=== PATIENT | male | born 1955 | race Caucasian/White ===

== ENCOUNTER 2017-03-28 03:35 | Emergency (ER) | payer OTHER ==
[~2017-03-28] VITALS: Ht 175.3 cm; Wt 79.4 kg
[~2017-03-28 03:35] MED LIST: CEPH-507 PO; HYDR-757 PO; SULF1TAB35 PO
--- NOTE | 2017-03-28 04:47 | ED Integumentary General ---
General Chief Complaint: Skin/Wound Problems Stated Complaint: SKIN ISSUES Nursing Triage Note: pt ambulated to room. pt states he has parasites all over his body. pt states that little worms are living inside him. pt states that he has been living with a woman for 4 months that has the same parasites he has. Source: patient Exam Limitations: no limitations History of Present Illness Time seen by provider: 04:29 Initial Comments Patient presents to ER by private conveyance with a chief complaint of a few weeks now he has felt a sensation of mosquito large a twitching under his skin. He does not believe he has muscular under his skin rather do think she has some microscopic parasite. He says his girlfriend he was living with for several months had been complaining of the same thing with very specific and often delusional complaints and he noted that no one would take her serious but he gave her the benefit of the doubt. He felt that most of her thinking was a little off and she attributed things to her parasites that made no one want to leave her. She had been examined by multiple doctors and dermatologists and was told that the sensations were in her head and secondary to her use of methamphetamines. He said he thought this might be the case as well until a few weeks ago he started feeling them himself. He has no primary doctor and has not had them worked up by anyone. He did see a street pharmacist who had recommended he use calcium hypochlorite and even put them in capsules for him to buy and take. He says initially they were working great and completely relieved his symptoms until tonight the calcium hypochlorite capsules were not helping his symptoms. He has no acid reflux, abdominal pain, nausea vomiting, hemoptysis. He has a few abrasions that are mildly pruritic. He has not seen any parasites or evidence of movement under his scan. He has no travel outside the [facility]. He says activated charcoal soap helps temporarily with the sensation. It is very convinced that he has parasites and that this is not a delusion. He has not seen a clip loading machine feeder, entomologist, psychiatrist about his symptoms. Allergies and Home Medications Allergies Coded Allergies: Penicillins (Verified Allergy, Unknown, 05/31/16) Home Medications Cephalexin 500 Mg Capsule, 500 MG PO TID, #21 Prescribed by: DEVANTE JONES on 05/31/161931 Hydrocodone/Acetaminophen 1 Each Tablet, 1 EACH PO Q4H PRN for PAIN, #14 Prescribed by: DEVANTE JONES on 05/31/161931 Sulfamethoxazole/Trimethoprim 1 Each Tablet, 1 EACH PO BID, #20 Prescribed by: DEVANTE JONES on 05/31/161931 Constitutional: No chills, No diaphoresis, No fever, No malaise Respiratory: No cough, No short of breath Gastrointestinal: No abdominal pain, No constipation, No diarrhea, No nausea, No vomiting Musculoskeletal: No back pain, No gout, No joint pain Skin: see HPI Psychiatric/Neurological: Anxiety, Denies Headache, Denies Numbness Past Elvrbia-Ftxxuc-Vtmoka Hx Patient Social History Alcohol Use: Denies Use Recreational Drug Use: No Smoking Status: Never a Smoker 2nd Hand Smoke Exposure: No Recent Foreign Travel: No Contact w/Someone Who Travel: No Recent Infectious Disease Expo: No Recent Hopitalizations: No Physical Abuse: No Sexual Abuse: No Seasonal Allergies Seasonal Allergies: No Surgeries History of Surgeries: Yes (HERNIA REPAIR) Surgeries: Tonsillectomy Respiratory History of Respiratory Disorde: No Cardiovascular History of Cardiac Disorders: No Neurological History of Neurological Disord: No Reproductive System Hx Reproductive Disorders: No Genitourinary History of Genitourinary Disor: No Gastrointestinal History of Gastrointestinal Di: No Musculoskeletal History of Musculoskeletal Dis: No Endocrine History of Endocrine Disorders: No HEENT History of HEENT Disorders: No Cancer History of Cancer: No Psychosocial History of Psychiatric Problem: No Suicide Risk Score: 0 Integumentary History of Skin or Integumenta: No Blood Transfusions History of Blood Disorders: No Physical Exam Vital Signs Vital Sign - Last 12Hours 03/28/17 03:54 Temp 98.2 Pulse 51 Resp 20 B/P (MAP) 151/95 Pulse Ox 99 O2 Delivery Room Air Capillary Refill : Less Than 3 Seconds General Appearance: WD/WN, no apparent distress HEENT: PERRL/EOMI, pharynx normal Cardiovascular: normal peripheral pulses, regular rate, rhythm Gastrointestinal: non tender, soft Extremities: no pedal edema, normal capillary refill Neurologic/Psychiatric: alert, oriented x 3, other (pressured speech) Skin: normal color, warm/dry, other (use Less than 1 cm long abrasions on either forearm without any erythema, induration, tracks, Chris, purulence, drainage, bleeding.) Progress/Results/Core Measures Results/Orders Lab Results Laboratory Tests Test 03/28/17 04:47 Range/Units White Blood Count 6.5 4.3-11.0 10^3/uL Red Blood Count 5.04 4.35-5.85 10^6/uL Hemoglobin 14.6 13.3-17.7 G/DL Hematocrit 43 40-54 % Mean Corpuscular Volume 85 80-99 FL Mean Corpuscular Hemoglobin 29 25-34 PG Mean Corpuscular Hemoglobin Concent 34 32-36 G/DL Red Cell Distribution Width 12.9 10.0-14.5 % Platelet Count 208 130-400 10^3/uL Mean Platelet Volume 10.5 H 7.4-10.4 FL Neutrophils (%) (Auto) 61 42-75 % Lymphocytes (%) (Auto) 22 12-44 % Monocytes (%) (Auto) 10 0-12 % Eosinophils (%) (Auto) 7 0-10 % Basophils (%) (Auto) 1 0-10 % Neutrophils # (Auto) 4.0 1.8-7.8 X 10^3 Lymphocytes # (Auto) 1.4 1.0-4.0 X 10^3 Monocytes # (Auto) 0.6 0.0-1.0 X 10^3 Eosinophils # (Auto) 0.4 H 0.0-0.3 10^3/uL Basophils # (Auto) 0.0 0.0-0.1 10^3/uL My Orders Orders - RANJANA MCNEILL Cbc With Automated Diff (03/28/17 04:41) Vital Signs/I&O Vital Sign - Last 12Hours 03/28/17 03:54 Temp 98.2 Pulse 51 Resp 20 B/P (MAP) 151/95 Pulse Ox 99 O2 Delivery Room Air Blood Pressure Mean: 113 Progress Note #1: Time: 04:46 Progress Note We'll collect a CBC looking for an elevated eosinophilia. I would then recommend that he go and see dermatology for further classification of his not readily apparent skin disorder. 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 Progress Note #2: Time: 05:07 Progress Note Absolute eosinophil count is 400 cells per microliter which is less than the tip seen with parasitosis of 500 L. We'll encourage him to follow-up with a clip loading machine feeder or primary care physician. Departure Impression Impression: Primary Impression: Skin disorder Disposition: 01 HOME, SELF-CARE Condition: Stable Departure-Patient Inst. Decision time for Depature: 05:08 Referrals: NO,LOCAL PHYSICIAN (PCP/Family) Primary Care Physician Add. Discharge Instructions: Follow-up with a primary care physician or a clip loading machine feeder. Please stop taking calcium hypochlorite as this is bleach and can be caustic and very dangerous to your stomach lining as well as your health. It can even be deadly. Washing your skin with a gentle soap and water daily is probably all you need. There may be further testing to be done such as skin scrapings or referral but these will only be done at primary care setting with outpatient follow-up. All discharge instructions reviewed with patient and/or family. Voiced understanding. RANJANA MCNEILL Mar 28, 2017 04:47
[2017-03-28 04:54] LABS: BASOPHILS % (AUTO) 1 % (0-10); EOSINOPHILS # (AUTO) 0.4 10^3/uL (0.0-0.3); EOSINOPHILS % (AUTO) 7 % (0-10); LYMPHOCYTES # (AUTO) 1.4 X 10^3 (1.0-4.0); LYMPHOCYTES % (AUTO) 22 % (12-44); MEAN CORPUSCULAR HEMOGLOBIN 29 PG (25-34); MEAN CORPUSCULAR HGB CONC 34 G/DL (32-36); MEAN CORPUSCULAR VOLUME 85 FL (80-99); MEAN PLATELET VOLUME 10.5 FL (7.4-10.4); MONOCYTES # (AUTO) 0.6 X 10^3 (0.0-1.0); MONOCYTES % (AUTO) 10 % (0-12); NEUTROPHILS % (AUTO) 61 % (42-75); PLATELET COUNT 208 10^3/uL (130-400); RED BLOOD COUNT 5.04 10^6/uL (4.35-5.85); RED CELL DISTRIBUTION WIDTH 12.9 % (10.0-14.5); WHITE BLOOD COUNT 6.5 10^3/uL (4.3-11.0)
[2017-03-28 05:19] VITALS: BP 151/95
== END 2017-03-28 05:20 | disposition home or self-care (01) ==
LOC: EDUNIT# 03:35 → ER 03:37
DX: L98.9 Disorder of the skin and subcutaneous tissue, unspecified (principal); Z90.89 Acquired absence of other organs
CPT/HCPCS: 36415; 85025; 99283

== ENCOUNTER 2018-01-26 10:21 | Inpatient (IN) | payer OTHER ==
[~2018-01-26] VITALS: Ht 175.3 cm; Wt 68.0 kg
[2018-01-26] MEDS ORDERED: ACETAMINOPHEN 500 MG TAB (TYLENOL) PO PRN (10:30)
--- NOTE | 2018-01-26 10:37 | ED GI ---
General Chief Complaint: Abdominal/GI Problems Stated Complaint: D/WEAKNESS Source of Information: Patient, EMS Exam Limitations: No Limitations (ALAN MARTIN STUDENT) History of Present Illness Date Seen by Provider: Jan 26, 2018 Time Seen by Provider: 10:32 Initial Comments Patient is a 62-year-old male who was brought to the emergency room by [facility] from [facility] with reports of fever, diarrhea, weakness, positive orthostats, and dehydration. [facility] reports that this was his first visit with them and on arrival he was extremely weak and thhe started an IV gave him 1 L of normal saline. EMS reports giving him a second liter of normal saline that was infusing on arrival to ED. The patient reports that he has had diarrhea for one month after eating a raw egg. He reports eating raw eggs often but states that the diarrhea started immediately after eating on this particular occasion. He reports over the past month he has had minimal appetite and when he does eat he has diarrhea shortly after. For the past 2 weeks he became extremely weak and has been running a fever. Timing/Duration: Changing Over Time, Other (1 month) Severity/Quality: Moderate Associated Symptoms: Fatigue, Headache, Weakness, Other (diarrhea) (ALAN MARTIN STUDENT) Allergies and Home Medications Allergies Coded Allergies: Penicillins (Verified Allergy, Unknown, 05/31/16) Patient Home Medication List Home Medication List Reviewed: Yes (ALAN MARTIN STUDENT) Review of Systems Constitutional: see HPI, fever, weakness EENTM: No Symptoms Reported Respiratory: See HPI; Denies Cough, Denies Shortness of Air, Denies Wheezing Cardiovascular: See HPI; Denies Chest Pain, Denies Edema, Denies Lightheadedness Gastrointestinal: See HPI; Denies Abdominal Pain; Diarrhea; Denies Nausea, Denies Vomiting Genitourinary: See HPI; Denies Drainage, Denies Frequency, Denies Flank Pain Musculoskeletal: see HPI; No back pain; muscle weakness Skin: see HPI; No change in color, No change in hair/nails Psychiatric/Neurological: See HPI; Denies Anxiety, Denies Depressed Endocrine: See HPI; Denies Excessive Sweating, Denies Flushing Hematologic/Lymphatic: See HPI; Denies Anemia (ALAN MARTIN STUDENT) All Other Systems Reviewed Negative Unless Noted: Yes (ALAN MARTIN) Past Orsvtmn-Kibswp-Csjmmg Hx Past Med/Social Hx: Reviewed Nursing Past Med/Soc Hx (ALAN MARTIN STUDENT) Patient Social History 2nd Hand Smoke Exposure: No Recent Hopitalizations: No (ALAN MARTIN) Seasonal Allergies Seasonal Allergies: No (ALAN MARTIN) Past Medical History Surgeries: Yes (HERNIA REPAIR) Tonsillectomy Respiratory: No Cardiac: No Neurological: No Reproductive Disorders: No Genitourinary: No Gastrointestinal: No Musculoskeletal: No Endocrine: No HEENT: No Cancer: No Psychosocial: No Integumentary: No Blood Disorders: No (ALAN MARTIN STUDENT) Family Medical History Reviewed Nursing Family Hx (ALAN MARTIN STUDENT) Physical Exam Vital Signs Vital Signs - First Documented 01/26/18 10:23 Temp 103.1 Pulse 82 Resp 16 B/P (MAP) 102/66 (78) Pulse Ox 99 O2 Delivery Nasal Cannula O2 Flow Rate 2.00 (CROW BURDEN MD) Vital Signs Capillary Refill : (ALAN MARTIN STUDENT) General Appearance: WD/WN, no apparent distress HEENT: normal ENT inspection, TMs normal, pharynx normal Neck: full range of motion, supple, normal inspection Respiratory: lungs clear, normal breath sounds, no respiratory distress, no accessory muscle use Cardiovascular: normal peripheral pulses, regular rate, rhythm, no edema Gastrointestinal: normal bowel sounds, non tender, soft Extremities: normal range of motion, non-tender, normal inspection, no pedal edema Back: normal inspection, no CVA tenderness, no vertebral tenderness Neurologic/Psychiatric: alert, normal mood/affect, oriented x 3 Skin: normal color, warm/dry Lymphatic: no adenopathy (ALAN MARTIN STUDENT) Focused Exam Lactate Level 01/26/18 10:25: Lactic Acid Level 0.89 (CROW BURDEN MD) Lactic Acid Level Laboratory Tests Test 01/26/18 10:25 Lactic Acid Level 0.89 MMOL/L (0.50-2.00) (CROW BURDEN MD) Progress/Results/Core Measures Results/Orders Lab Results Laboratory Tests Test 01/26/18 10:25 01/26/18 12:42 Range/Units White Blood Count 9.3 4.3-11.0 10^3/uL Red Blood Count 4.32 L 4.35-5.85 10^6/uL Hemoglobin 12.5 L 13.3-17.7 G/DL Hematocrit 36 L 40-54 % Mean Corpuscular Volume 82 80-99 FL Mean Corpuscular Hemoglobin 29 25-34 PG Mean Corpuscular Hemoglobin Concent 35 32-36 G/DL Red Cell Distribution Width 13.2 10.0-14.5 % Platelet Count 270 130-400 10^3/uL Mean Platelet Volume 10.4 7.4-10.4 FL Neutrophils (%) (Auto) 85 H 42-75 % Lymphocytes (%) (Auto) 8 L 12-44 % Monocytes (%) (Auto) 7 0-12 % Eosinophils (%) (Auto) 0 0-10 % Basophils (%) (Auto) 0 0-10 % Neutrophils # (Auto) 7.9 H 1.8-7.8 X 10^3 Lymphocytes # (Auto) 0.7 L 1.0-4.0 X 10^3 Monocytes # (Auto) 0.7 0.0-1.0 X 10^3 Eosinophils # (Auto) 0.0 0.0-0.3 10^3/uL Basophils # (Auto) 0.0 0.0-0.1 10^3/uL Prothrombin Time 18.2 H 12.2-14.7 SEC INR Comment 1.5 H 0.8-1.4 Activated Partial Thromboplast Time 38 H 24-35 SEC Sodium Level 131 L 135-145 MMOL/L Potassium Level 3.4 L 3.6-5.0 MMOL/L Chloride Level 100 98-107 MMOL/L Carbon Dioxide Level 21 21-32 MMOL/L Anion Gap 10 5-14 MMOL/L Blood Urea Nitrogen 14 7-18 MG/DL Creatinine 0.76 0.60-1.30 MG/DL Estimat Glomerular Filtration Rate > 60 BUN/Creatinine Ratio 18 Glucose Level 109 H 70-105 MG/DL Lactic Acid Level 0.89 0.50-2.00 MMOL/L Calcium Level 7.8 L 8.5-10.1 MG/DL Total Bilirubin 1.3 H 0.1-1.0 MG/DL Aspartate Amino Transf (AST/SGOT) 55 H 5-34 U/L Alanine Aminotransferase (ALT/SGPT) 96 H 0-55 U/L Alkaline Phosphatase 49 40-136 U/L Total Protein 6.0 L 6.4-8.2 GM/DL Albumin 3.1 L 3.2-4.5 GM/DL (CROW BURDEN MD) My Orders Orders - CROW BURDEN MD Cbc With Automated Diff (01/26/18 10:30) Comprehensive Metabolic Panel (01/26/18 10:30) Lactic Acid Analyzer (01/26/18 10:30) Blood Culture (01/26/18 10:30) Sputum Culture (01/26/18 10:30) Ua Culture If Indicated (01/26/18 10:30) Protime With Inr (01/26/18 10:30) Partial Thromboplastin Time (01/26/18 10:30) Chest 1 View, Ap/Pa Only (01/26/18 10:30) O2 (01/26/18 10:30) Acetaminophen Tablet (Tylenol Tablet) (01/26/18 10:30) Saline Lock/Iv-Start (01/26/18 10:30) Vital Signs Adult Sepsis Patie Q15M (01/26/18 10:30) Remove Rings In Anticipation O (01/26/18 10:30) Saline Lock/Iv-Start (01/26/18 11:25) Ns Iv 1000 Ml (Sodium Chloride 0.9%) (01/26/18 11:25) Ceftriaxone Injection (Rocephin Injectio (01/26/18 12:15) Tick Panel With Lyme Eia (01/26/18 12:44) (CROW BURDEN MD) Medications Given in ED Current Medications Medications Dose Ordered Sig/Sneha Route Start Time Stop Time Status Last Admin Dose Admin Acetaminophen 1,000 mg ONCE PRN PO 01/26/18 10:30 01/26/18 10:43 DC 01/26/18 10:43 1,000 MG Ceftriaxone Sodium 1000 mg/ Sodium Chloride 50 ml @ 100 mls/hr ONCE ONCE IV 01/26/18 12:15 01/26/18 12:44 DC 01/26/18 12:36 100 MLS/HR Sodium Chloride 1,000 ml @ 0 mls/hr Q0M ONCE IV 01/26/18 11:25 01/26/18 11:26 DC 01/26/18 11:33 1,000 MLS/HR (CROW BURDEN MD) Vital Signs/I&O 01/26/18 01/26/18 01/26/18 01/26/18 10:23 10:46 11:15 11:38 Temp 103.1 100.0 Pulse 82 64 73 92 Resp 16 B/P (MAP) 102/66 (78) 105/62 (76) 105/64 (78) 88/61 (70) Pulse Ox 99 O2 Delivery Nasal Cannula Nasal Cannula O2 Flow Rate 2.00 4.00 (CROW BURDEN MD) Progress Progress Note : Progress Note I have seen and evaluated the patient (CROW BURDEN MD) Departure Communication (Admissions) Time/Spoke to Admitting Phy: 12:40 Time/Spoke to Consulting Phy: 12:45 (CROW BURDEN MD) Impression Primary Impression: Bilateral pneumonia Qualified Codes: J18.9 - Pneumonia, unspecified organism Additional Impression: Elevated liver enzymes Disposition: ADMITTED INPATIENT Condition: Stable Admissions Decision to Admit Reason: Admit from ER (General) Decision to Admit/Date: Jan 26, 2018 Time/Decision to Admit Time: 12:40 (CROW BURDEN MD) Departure-Patient Inst. Referrals: [facility] (PCP/Family) Primary Care Physician ALAN MARTIN STUDENT Jan 26, 2018 10:37 CROW BURDEN MD Jan 26, 2018 12:59
[2018-01-26 10:44] LABS: BASOPHILS % (AUTO) 0 % (0-10); EOSINOPHILS % (AUTO) 0 % (0-10); HEMATOCRIT 36 % (40-54); HEMOGLOBIN 12.5 G/DL (13.3-17.7); LYMPHOCYTES # (AUTO) 0.7 X 10^3 (1.0-4.0); LYMPHOCYTES % (AUTO) 8 % (12-44); MEAN CORPUSCULAR HEMOGLOBIN 29 PG (25-34); MEAN CORPUSCULAR HGB CONC 35 G/DL (32-36); MEAN CORPUSCULAR VOLUME 82 FL (80-99); MEAN PLATELET VOLUME 10.4 FL (7.4-10.4); MONOCYTES # (AUTO) 0.7 X 10^3 (0.0-1.0); MONOCYTES % (AUTO) 7 % (0-12); NEUTROPHILS # (AUTO) 7.9 X 10^3 (1.8-7.8); NEUTROPHILS % (AUTO) 85 % (42-75); PLATELET COUNT 270 10^3/uL (130-400); RED BLOOD COUNT 4.32 10^6/uL (4.35-5.85); RED CELL DISTRIBUTION WIDTH 13.2 % (10.0-14.5); WHITE BLOOD COUNT 9.3 10^3/uL (4.3-11.0)
[2018-01-26 10:53] LABS: INR 1.5 (0.8-1.4); PROTHROMBIN TIME PATIENT 18.2 SEC (12.2-14.7)
[2018-01-26 10:56] LABS: ALANINE AMINOTRANSFERASE 96 U/L (0-55); ALBUMIN 3.1 GM/DL (3.2-4.5); ALKALINE PHOSPHATASE 49 U/L (40-136); BILIRUBIN,TOTAL 1.3 MG/DL (0.1-1.0); BUN/CREATININE RATIO 18; CALCIUM 7.8 MG/DL (8.5-10.1); CARBON DIOXIDE 21 MMOL/L (21-32); CHLORIDE 100 MMOL/L (98-107); CREATININE SERUM 0.76 MG/DL (0.60-1.30); GFR ESTIMATED > 60; GLUCOSE 109 MG/DL (70-105); POTASSIUM 3.4 MMOL/L (3.6-5.0); SODIUM 131 MMOL/L (135-145)
[2018-01-26 11:15] VITALS: BP_SYST 105; BP_SYST 88; BP_DIAS 61; BP_DIAS 62; BP_DIAS 64
--- NOTE | 2018-01-26 11:22 | Diagnostic Imaging Report ---
PATIENT HISTORY: Dyspnea. TECHNIQUE: Single frontal view of the chest COMPARISON: None FINDINGS: Airspace opacities are seen in the right midlung and the left midlung. No pleural effusion or pneumothorax is seen. Lung volumes are normal. The heart is normal in size. No acute osseous abnormality seen. IMPRESSION: Airspace opacities in the right midlung and the left midlung, concerning for pneumonia in the appropriate clinical setting. Dictated by: Dictated on workstation # [id number]
[2018-01-26] MEDS ORDERED: NS IV 1000 ML 1,000 ML IV ONE (11:25)
[2018-01-26] MEDS ORDERED: cefTRIAXone INJECTION 1,000 MG in NS (IVPB) 50 ML IV ONE (12:15)
[2018-01-26 12:52] LABS: BILIRUBIN,URINE NEGATIVE (NEGATIVE); CLARITY,URINE CLEAR; COLOR,URINE YELLOW; GLUCOSE, URINE (UA) NEGATIVE (NEGATIVE); KETONES,URINE 2+ (NEGATIVE); LEUKOCYTE ESTERASE ,URINE NEGATIVE (NEGATIVE); NITRITE,URINE NEGATIVE (NEGATIVE); PH,URINE 6.5 (5-9); PROTEIN,URINE 2+ (NEGATIVE); UROBILINOGEN,URINE NORMAL (NORMAL)
[2018-01-26 13:00] LABS: BACTERIA,URINE NEGATIVE /HPF; SQUAMOUS EPITHELIAL CELL,UR RARE /HPF
[2018-01-26] MEDS ORDERED: NS IV 1000 ML 1,000 ML ONE (13:28)
[2018-01-26 14:09] VITALS: BP 105/62
[2018-01-26] MEDS ORDERED: ONDANSETRON 4 MG/2 ML (SDV) Z0FRAN IV PRN (14:15)
[2018-01-26] MEDS ORDERED: CATHETER FLUSH 10 ML SYR IV PRN (14:15)
[2018-01-26] MEDS ORDERED: RT-ALBUTEROL SULF 2.5 MG/3 ML PRE-MIX VIAL INH PRN (14:30)
[2018-01-26] MEDS: RT-ALBUTEROL SULF 2.5 MG/3 ML PRE-MIX VIAL INH SCH ×2 (15:17→18:41)
[2018-01-26 15:30] VITALS: BP 100/60
[2018-01-26] MEDS: DOXYCYCLINE INJECTION 100 MG in NS (IVPB) 100 ML IV SCH ×2 (15:36→21:16)
[2018-01-26] MEDS: NS IV 1000 ML 1,000 ML IV SCH ×2 (15:36→23:30)
[2018-01-26 20:10] VITALS: BP 106/61
[2018-01-26] MEDS ORDERED: LORazepam INJ 2 MG/ML (ATIVAN) VIAL IVP ONE (21:30)
[2018-01-26] MEDS: ACETAMINOPHEN 325 MG TABLET PO PRN (23:06)
[2018-01-27 00:08] VITALS: BP 111/57
[2018-01-27] MEDS: RT-ALBUTEROL SULF 2.5 MG/3 ML PRE-MIX VIAL INH SCH ×4 (02:30→18:56)
[2018-01-27 04:01] VITALS: BP 139/66
[2018-01-27] MEDS: ACETAMINOPHEN 325 MG TABLET PO PRN ×2 (05:22→11:25)
[2018-01-27 06:40] LABS: BASOPHILS % (AUTO) 0 % (0-10); EOSINOPHILS % (AUTO) 0 % (0-10); HEMATOCRIT 31 % (40-54); HEMOGLOBIN 10.9 G/DL (13.3-17.7); LYMPHOCYTES # (AUTO) 0.8 X 10^3 (1.0-4.0); LYMPHOCYTES % (AUTO) 9 % (12-44); MEAN CORPUSCULAR HEMOGLOBIN 30 PG (25-34); MEAN CORPUSCULAR HGB CONC 35 G/DL (32-36); MEAN CORPUSCULAR VOLUME 84 FL (80-99); MEAN PLATELET VOLUME 10.6 FL (7.4-10.4); MONOCYTES # (AUTO) 0.7 X 10^3 (0.0-1.0); MONOCYTES % (AUTO) 8 % (0-12); NEUTROPHILS # (AUTO) 6.7 X 10^3 (1.8-7.8); NEUTROPHILS % (AUTO) 82 % (42-75); PLATELET COUNT 261 10^3/uL (130-400); RED BLOOD COUNT 3.68 10^6/uL (4.35-5.85); RED CELL DISTRIBUTION WIDTH 13.4 % (10.0-14.5); WHITE BLOOD COUNT 8.1 10^3/uL (4.3-11.0)
[2018-01-27 07:16] LABS: ALANINE AMINOTRANSFERASE 68 U/L (0-55); ALBUMIN 2.7 GM/DL (3.2-4.5); ALKALINE PHOSPHATASE 49 U/L (40-136); BILIRUBIN,TOTAL 0.8 MG/DL (0.1-1.0); BUN/CREATININE RATIO 13; CALCIUM 7.5 MG/DL (8.5-10.1); CARBON DIOXIDE 20 MMOL/L (21-32); CHLORIDE 110 MMOL/L (98-107); CREATININE SERUM 0.62 MG/DL (0.60-1.30); GFR ESTIMATED > 60; GLUCOSE 109 MG/DL (70-105); POTASSIUM 3.7 MMOL/L (3.6-5.0); SODIUM 138 MMOL/L (135-145); TOTAL PROTEIN 5.3 GM/DL (6.4-8.2)
[2018-01-27 07:50] VITALS: BP 115/68
[2018-01-27] MEDS: DOXYCYCLINE INJECTION 100 MG in NS (IVPB) 100 ML IV SCH ×2 (08:04→20:48)
[2018-01-27] MEDS: NS IV 1000 ML 1,000 ML IV SCH ×2 (08:04→17:12)
[2018-01-27] MEDS: ONDANSETRON 4 MG (ZOFRAN) ORAL DISSOLVE TAB PO PRN ×2 (08:06→17:12)
--- NOTE | 2018-01-27 09:11 | History & Physical-Hospitalist ---
History of Present Illness HPI/Chief Complaint CC: Fever with dyspnea HPI: This is a 62-year-old white male referred from [facility] walk-in clinic who presents with fever and dyspnea found to have bilateral pneumonia but elevated liver enzymes and weight loss gives rise to more evaluation. He denies any smoking or alcohol use but unsure if all of his details are reliable. 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 He reports that he is feeling worse but I don't evaluate anything to be that source of worsening. He is convinced it is Salmonella poisoning of which I'm unclear where he obtain that information and he doesn't know either. Source: patient Exam Limitations: no limitations Date Seen 01/27/18 Time Seen by Provider: 09:00 Attending Physician Kalee Holcomb DO [facility] Referring Physician Date of Admission Jan 26, 2018 at 12:45 Home Medications & Allergies Home Medications Reviewed patient Home Medication Reconciliation performed by pharmacy medication reconciliations certified composites technician and/or nursing. Patients Allergies have been reviewed. Allergies Allergies Coded Allergies Penicillins (Verified Allergy, Unknown, 05/31/16) Past Vfevuqf-Lcfdth-Gglflv Hx Past Med/Social Hx: Reviewed Nursing Past Med/Soc Hx, Reviewed and Corrections made Patient Social History Marrital Status: single Employed/Student: unemployed Alcohol Use: Denies Use Recreational Drug Use: No Smoking Status: Never a Smoker 2nd Hand Smoke Exposure: No Recent Foreign Travel: No Contact w/other who traveled: No Recent Hopitalizations: No Recent Infectious Disease Expo: No Seasonal Allergies Seasonal Allergies: No Past Medical History Surgeries: Tonsillectomy Reproductive: No History of Blood Disorders: No Family History Reviewed Nursing Family Hx No Pertinent Family Hx Review of Systems Constitutional: see HPI, chills, dizziness, fever, malaise, weakness EENTM: no symptoms reported Respiratory: cough, dyspnea on exertion Cardiovascular: no symptoms reported Gastrointestinal: loss of appetite, nausea Genitourinary: no symptoms reported Musculoskeletal: back pain Skin: no symptoms reported Psychiatric/Neurological: Depressed All Other Systems Reviewed Negative Unless Noted: Yes Physical Exam Physical Exam Vital Signs Vital Signs - First Documented 01/26/18 10:23 Temp 103.1 Pulse 82 Resp 16 B/P (MAP) 102/66 (78) Pulse Ox 99 O2 Delivery Nasal Cannula O2 Flow Rate 2.00 Capillary Refill : Less Than 3 Seconds General Appearance: No Apparent Distress, WD/WN, Cachetic Eyes: Bilateral Eye Normal Inspection, Bilateral Eye PERRL HEENT: PERRL/EOMI, Normal ENT Inspection, Pharynx Normal Neck: Full Range of Motion, Normal Inspection, Non Tender, Supple, Carotid Bruit Respiratory: Chest Non Tender, No Accessory Muscle Use, No Respiratory Distress , Crackles, Decreased Breath Sounds Cardiovascular: Regular Rate, Rhythm, No Edema, No Gallop, No JVD, No Murmur, Normal Peripheral Pulses Gastrointestinal: Normal Bowel Sounds, No Organomegaly, No Pulsatile Mass, Non Tender, Soft Back: Normal Inspection, No CVA Tenderness, No Vertebral Tenderness Extremity: Normal Capillary Refill, Normal Inspection, Normal Range of Motion, Non Tender, No Calf Tenderness, No Pedal Edema Neurologic/Psychiatric: Alert, Oriented x3, No Motor/Sensory Deficits, Normal Mood/Affect Skin: Normal Color, Warm/Dry Lymphatic: No Adenopathy Results Results/Procedures Labs Laboratory Tests 01/26/18 10:25 01/27/18 05:57 Patient resulted labs reviewed. Assessment/Plan Admission Diagnosis Assessment: Bilateral pneumonia Acute tularemia infection Cough with fever Weight loss Hypoalbuminemia Elevated liver enzymes with ultrasound negative Coagulopathy INR 1.5 Plan: Maintain doxycycline for tularemia treatment Nebulizer treatments Check labs in a.m. Antibiotics Admission Status: Inpatient Order (span 2 midnights) Reason for Inpatient Admission: B/L pneumonia with wt loss Assessment and Plan Plan: Maintain antibiotics Nebulizer treatments Further evaluate source of weight loss and coagulopathy May need CT scan of the chest Diagnosis/Problems Diagnosis/Problems (1) Bilateral pneumonia Status: Acute Assessment & Plan: Maintain on Rocephin and nebulizer treatments Qualifiers: Pneumonia type: due to unspecified organism Lung location: unspecified part of lung Qualified Codes: J18.9 - Pneumonia, unspecified organism (2) Tularemia, pulmonary Status: Acute Assessment & Plan: Maintain on doxycycline (3) Coagulopathy Status: Acute Assessment & Plan: Ultrasound of liver normal except hepatomegaly awaiting hepatitis panel but CT scan didn't show any source of issues (4) Weight loss Status: Acute (5) Proteinuria Status: Acute Assessment & Plan: Recheck urinalysis tomorrow after hydration for 48 hours Qualifiers: Proteinuria type: unspecified Qualified Codes: R80.9 - Proteinuria, unspecified (6) Anemia Status: Acute Qualifiers: Anemia type: unspecified type Qualified Codes: D64.9 - Anemia, unspecified (7) Elevated liver enzymes Status: Acute Clinical Quality Measures DVT/VTE Risk/Contraindication: Risk Factor Score Per Nursin RFS Level Per Nursing on Admit: 4+=Very High CHONG VILLEGAS DO Jan 27, 2018 09:11
--- NOTE | 2018-01-27 10:51 | Diagnostic Imaging Report ---
PROCEDURE: US abdomen complete. TECHNIQUE: Multiple real-time grayscale images were obtained over the abdomen in various projections. INDICATION: Abnormally elevated liver enzymes test. COMPARISON: None available. FINDINGS: Visualized portions of the liver have normal echogenicity and are without focal mass lesion. Portions of the left hepatic lobe are obscured by overlying bowel gas. The main portal vein is patent with normal direction of flow. The liver is mildly enlarged measuring 20 cm in length. The gallbladder is normally distended without gallbladder wall thickening or pericholecystic fluid. No gallstones are present. The common bile duct is obscured by overlying bowel gas and therefore not seen. The pancreas is completely obscured by overlying bowel gas. The spleen is normal in size measuring approximately 12 cm in length. No focal lesion of the spleen. Both kidneys are visualized and normal in size without hydronephrosis or suspicious solid mass lesion. No ascites within the visualized abdomen. The aorta and IVC are obscured by overlying bowel gas. IMPRESSION: 1. Borderline hepatomegaly. No focal hepatic lesion or ultrasound features of cirrhosis. 2. Normal gallbladder. Dictated by: Dictated on workstation # [id number]
[2018-01-27 11:43] VITALS: BP 112/56
[2018-01-27] MEDS ORDERED: NS 250 ML (IVPB) BAG IV ONE (14:00)
[2018-01-27] MEDS ORDERED: IOHEXOL 350 MG/ML 100 ML (OMNIPAQUE 350) VIAL IV ONE (14:00)
[2018-01-27] MEDS ORDERED: RECEIVED CONTRAST (Hold Metformin) IV SCH (14:30)
--- NOTE | 2018-01-27 14:35 | Pulmonary Consultation ---
History of Present Illness History of Present Illness Date of Consultation 01/27/18 14:30 Time Seen by Provider: 06:30 Date of Admission History of Present Illness 62yo WM presented to ED secondary to fever NS, chills. PT was found to have bilateral pneumonia and elevated liver enzymes. Pt has also had wt loss. Allergies and Home Medications Allergies Coded Allergies: Penicillins (Verified Allergy, Unknown, 05/31/16) Home Medications Doxycycline Hyclate 100 Mg Tablet, 100 MG PO BID@ Prescribed by: REAGAN MATHEWS on 02/02/18 1236 Past Apfvqhx-Yimlmk-Nnqtzk Hx Past Med/Social Hx: Reviewed Nursing Past Med/Soc Hx, Reviewed and Corrections made Patient Social History Alcohol Use: Denies Use Recreational Drug Use: No Smoking Status: Never a Smoker 2nd Hand Smoke Exposure: No Recent Foreign Travel: No Contact w/Someone Who Travel: No Recent Infectious Disease Expo: No Recent Hopitalizations: No Seasonal Allergies Seasonal Allergies: No Past Medical History Surgeries: Yes (HERNIA REPAIR) Tonsillectomy Respiratory: No Cardiac: No Neurological: No Reproductive Disorders: No Genitourinary: No Gastrointestinal: No Musculoskeletal: No Endocrine: No HEENT: No Cancer: No Psychosocial: No Integumentary: No Blood Disorders: No Family Medical History Reviewed Nursing Family Hx No Pertinent Family Hx Review of Systems Time Seen by Provider: 13:49 Exam Exam Vital Signs Date Time Temp Pulse Resp B/P (MAP) Pulse Ox O2 Delivery O2 Flow Rate FiO2 01/27/18 11:43 102.2 84 16 112/56 (74) 99 Nasal Cannula 1.50 01/27/18 09:23 93 Nasal Cannula 2.00 01/27/18 09:00 Nasal Cannula 2.00 01/27/18 07:50 100.0 76 18 115/68 (84) 97 Nasal Cannula 1.50 01/27/18 04:01 101.2 83 18 139/66 (90) 92 Nasal Cannula 1.50 01/27/18 02:31 94 Nasal Cannula 2.00 01/27/18 00:08 98.8 72 17 111/57 (75) 97 Nasal Cannula 1.50 01/26/18 21:00 Nasal Cannula 2.00 01/26/18 20:10 98.8 80 18 106/61 (76) 94 Nasal Cannula 1.50 01/26/18 18:43 96 Nasal Cannula 2.00 01/26/18 15:30 97.6 59 16 100/60 (73) 100 Nasal Cannula 1.50 01/26/18 15:17 95 Nasal Cannula 2.00 I & O 01/27/18 07:00 Intake Total 4440 ml Output Total 1350 ml Balance 3090 ml General Appearance: No Apparent Distress, WD/WN, Cachetic HEENT: PERRL/EOMI, Normal ENT Inspection, Pharynx Normal Neck: Full Range of Motion, Normal Inspection, Non Tender, Supple, Carotid Bruit Respiratory: Chest Non Tender, No Accessory Muscle Use, No Respiratory Distress , Crackles, Decreased Breath Sounds Cardiovascular: Regular Rate, Rhythm, No Edema, No Gallop, No JVD, No Murmur, Normal Peripheral Pulses Capillary Refill: Less Than 3 Seconds Gastrointestinal: normal bowel sounds, non tender, soft Extremity: Normal Capillary Refill, Normal Inspection, Normal Range of Motion, Non Tender, No Calf Tenderness, No Pedal Edema Neurologic/Psychiatric: Alert, Oriented x3, No Motor/Sensory Deficits, Normal Mood/Affect Skin: Normal Color, Warm/Dry Lymphatic: No Adenopathy Results Lab Laboratory Tests 01/26/18 10:25 01/27/18 05:57 Assessment/Plan Assessment/Plan Bilateral pneumonia -Continue Abx for and continue to follow -Check legionella, and strep Ag -Will need to continue to follow imaging until complete resolution. -CT of chest is pending Elevated liver enzymes -US RUQ is pending Wt loss -Monitor 254 GIRISH BROWN DO Jan 27, 2018 14:35
--- NOTE | 2018-01-27 15:30 | Diagnostic Imaging Report ---
PROCEDURE: CT chest, abdomen, and pelvis with contrast. TECHNIQUE: Multiple contiguous axial images were obtained through the chest, abdomen, and pelvis after the administration of intravenous contrast. INDICATION: Weight loss and pneumonia. COMPARISON: No prior CT studies are available for comparison. FINDINGS: CT CHEST: No axillary lymphadenopathy is detected. There are some mildly prominent mediastinal lymph nodes present in the AP window as well as paratracheal and subcarinal regions. Soft tissue fullness in the subcarinal region measures approximately 2.5 x 1.3 cm. There are some mild soft tissue prominence in the right and left matt as well. No pericardial fluid is seen. There appears to be some trace pleural fluid bilaterally. Parenchymal evaluation does show significant airspace consolidation with air bronchograms in the bilateral upper lobes. There is milder infiltrate or atelectasis in the right lower lobe with some minimal dependent atelectasis left lower lobe. IMPRESSION: Extensive bilateral upper lobe consolidation and air bronchograms, suggestive of pneumonia. There are some prominent mediastinal and hilar lymph nodes present which may be reactive. Followup after course of therapy is recommended to confirm clearing. There is some trace bilateral pleural fluid and minimal right lower lobe infiltrate as well. CT ABDOMEN AND PELVIS: No discrete liver mass is identified. The gallbladder is contracted. The pancreas and spleen are unremarkable. No adrenal mass is identified. The kidneys are unremarkable. Aorta is non-aneurysmal. No free fluid is seen. There are some fluid-filled small and large bowel loops but the pattern appears to be nonobstructive. There is no free air or likely a fluid collection. Bladder is unremarkable. No definite abdominal or pelvic lymphadenopathy is seen. IMPRESSION: Essentially unremarkable CT of the abdomen and pelvis apart from some mild fluid-filled small and large bowel loops. This is nonspecific but could be owing to nonspecific enteritis. No acute feature in the abdomen or pelvis is seen. Dictated by: Dictated on workstation # [id number]
[2018-01-27 15:40] VITALS: BP 101/55
[2018-01-27 20:30] VITALS: BP 125/60
[2018-01-28 00:05] VITALS: BP 123/59
[2018-01-28] MEDS: NS IV 1000 ML 1,000 ML IV SCH ×4 (02:24→20:06)
[2018-01-28] MEDS: RT-ALBUTEROL SULF 2.5 MG/3 ML PRE-MIX VIAL INH SCH ×4 (02:45→21:51)
[2018-01-28 04:07] VITALS: BP 131/68
[2018-01-28 06:37] LABS: HEPATITIS C ANTIBODY C Non-Reactive (Non-Reactive)
[2018-01-28 07:01] LABS: BASOPHILS % (AUTO) 0 % (0-10); EOSINOPHILS % (AUTO) 0 % (0-10); HEMATOCRIT 33 % (40-54); HEMOGLOBIN 11.1 G/DL (13.3-17.7); LYMPHOCYTES # (AUTO) 1.1 X 10^3 (1.0-4.0); LYMPHOCYTES % (AUTO) 12 % (12-44); MEAN CORPUSCULAR HEMOGLOBIN 29 PG (25-34); MEAN CORPUSCULAR HGB CONC 34 G/DL (32-36); MEAN CORPUSCULAR VOLUME 85 FL (80-99); MEAN PLATELET VOLUME 10.4 FL (7.4-10.4); MONOCYTES # (AUTO) 0.7 X 10^3 (0.0-1.0); MONOCYTES % (AUTO) 8 % (0-12); NEUTROPHILS # (AUTO) 7.2 X 10^3 (1.8-7.8); NEUTROPHILS % (AUTO) 80 % (42-75); PLATELET COUNT 301 10^3/uL (130-400); RED BLOOD COUNT 3.84 10^6/uL (4.35-5.85); RED CELL DISTRIBUTION WIDTH 13.8 % (10.0-14.5)
[2018-01-28 07:21] LABS: ALANINE AMINOTRANSFERASE 62 U/L (0-55); ALBUMIN 2.9 GM/DL (3.2-4.5); ALKALINE PHOSPHATASE 48 U/L (40-136); BILIRUBIN,TOTAL 0.9 MG/DL (0.1-1.0); BUN/CREATININE RATIO 11; CALCIUM 7.9 MG/DL (8.5-10.1); CARBON DIOXIDE 21 MMOL/L (21-32); CHLORIDE 104 MMOL/L (98-107); CREATININE SERUM 0.63 MG/DL (0.60-1.30); GFR ESTIMATED > 60; GLUCOSE 100 MG/DL (70-105); POTASSIUM 3.5 MMOL/L (3.6-5.0); SODIUM 136 MMOL/L (135-145); TOTAL PROTEIN 5.8 GM/DL (6.4-8.2)
--- NOTE | 2018-01-28 07:23 | Pulmonary Progress Note ---
Subjective Time Seen by Provider: 07:23 Subjective/Events-last exam PT states he feels "off". denies specific symptoms. Focused Exam Lactate Level 01/26/18 10:25: Lactic Acid Level 0.89 Exam Exam Vital Signs Date Time Temp Pulse Resp B/P (MAP) Pulse Ox O2 Delivery O2 Flow Rate FiO2 01/28/18 02:47 92 Nasal Cannula 2.00 01/28/18 00:05 100.0 82 18 123/59 (80) 96 Nasal Cannula 1.50 01/27/18 21:00 Nasal Cannula 2.00 01/27/18 20:30 100.0 85 20 125/60 (81) 95 Nasal Cannula 1.50 01/27/18 18:58 92 Nasal Cannula 2.00 01/27/18 15:40 99.1 76 18 101/55 (70) 96 Nasal Cannula 1.50 01/27/18 14:59 95 Nasal Cannula 2.00 01/27/18 11:43 102.2 84 16 112/56 (74) 99 Nasal Cannula 1.50 01/27/18 09:23 93 Nasal Cannula 2.00 01/27/18 09:00 Nasal Cannula 2.00 01/27/18 07:50 100.0 76 18 115/68 (84) 97 Nasal Cannula 1.50 I & O 01/28/18 07:00 Intake Total 1825 ml Output Total 2500 ml Balance -675 ml General Appearance: No Apparent Distress, WD/WN, Cachetic HEENT: PERRL/EOMI, Normal ENT Inspection, Pharynx Normal Neck: Full Range of Motion, Normal Inspection, Non Tender, Supple, Carotid Bruit Respiratory: Chest Non Tender, No Accessory Muscle Use, No Respiratory Distress , Crackles, Decreased Breath Sounds Cardiovascular: Regular Rate, Rhythm, No Edema, No Gallop, No JVD, No Murmur, Normal Peripheral Pulses Capillary Refill: Less Than 3 Seconds Gastrointestinal: normal bowel sounds, non tender, soft Extremity: Normal Capillary Refill, Normal Inspection, Normal Range of Motion, Non Tender, No Calf Tenderness, No Pedal Edema Neurologic/Psychiatric: Alert, Oriented x3, No Motor/Sensory Deficits, Normal Mood/Affect, Depressed Affect, Motor Weakness Skin: Normal Color, Warm/Dry Lymphatic: No Adenopathy Results Lab Laboratory Tests 01/26/18 10:25 6/26/18 05:57 01/28/18 06:15 Assessment/Plan Assessment/Plan Bilateral pneumonia -Continue Rocephin, doxy -Branch cultures pending -Check legionella, and strep Ag -Will need to continue to follow imaging until complete resolution. -CT of chest shows pneumonia Tularemia , Ehrlichiosis -Continue doxy Confusion, dizziness -check MRI r/o mass vs other -CHeck UDS. PT has been here for a couple days so a negative result will not be of value. Elevated liver enzymes -US RUQ is pending Wt loss -Monitor [address] bAbasi patients plan of care. Will await results of MRI. GIRISH BROWN DO Jan 28, 2018 07:23
[2018-01-28 08:00] VITALS: BP 112/68
[2018-01-28] MEDS: DOXYCYCLINE 100 MG (VIBRAMYCIN) TABLET PO SCH ×2 (08:24→17:44)
[2018-01-28] MEDS: KCL 20 MEQ TAB (K-DUR) PO SCH ×2 (10:21→17:43)
--- NOTE | 2018-01-28 10:22 | Progress Note-Hospitalist ---
Subjective HPI/CC On Admission Date Seen by Provider: Jan 28, 2018 Time Seen by Provider: 09:15 CC: Fever with dyspnea HPI: This is a 62-year-old white male referred from pending sale to [facility] walk-in clinic who presents with fever and dyspnea found to have bilateral pneumonia but elevated liver enzymes and weight loss gives rise to more evaluation. He denies any smoking or alcohol use but unsure if all of his details are reliable. 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 He reports that he is feeling worse but I don't evaluate anything to be that source of worsening. He is convinced it is Salmonella poisoning of which I'm unclear where he obtain that information and he doesn't know either. Subjective/Events-last exam Patient is convinced he is dying Labs are improved while maintain on doxycycline for confirmed early ketosis and tularemia Rocephin maintained for pneumonia Nebulizer treatments doing well Oxygen on room air is about 92 percent remains on 2 L Patient is not getting up and around out of bed so will initiate physical therapy and occupational therapy and provide patient a shower Very difficult to motivate overall and it appears that he has had significant decompensation in his overall stability and ability to maintain his own activities of daily living Has loose stools but that is an ongoing very mild issue Convinced he has salmonella but there is no reason for me to suspect that at this time and we'll maintain the current treatment plan Review of Systems General: Fatigue, Malaise Focused Exam Lactate Level 01/26/18 10:25: Lactic Acid Level 0.89 Objective Exam Vital Signs Vital Signs Date Time Temp Pulse Resp B/P (MAP) Pulse Ox O2 Delivery O2 Flow Rate FiO2 01/28/18 09:38 93 Nasal Cannula 2.00 01/28/18 08:00 99.8 84 18 112/68 (83) Capillary Refill : Less Than 3 Seconds General Appearance: No Apparent Distress, WD/WN, Thin Respiratory: No Accessory Muscle Use, No Respiratory Distress, Crackles, Decreased Breath Sounds Cardiovascular: Regular Rate, Rhythm, No Edema Neurologic/Psychiatric: Alert, Oriented x3, No Motor/Sensory Deficits, Normal Mood/Affect Results/Procedures Lab Laboratory Tests 01/28/18 06:15 Patient resulted labs reviewed. Assessment/Plan Assessment and Plan Assess & Plan/Chief Complaint Assessment: Pneumonia bilateral Hypokalemia Tularemia Ehrlichiosis Overall poor motivation to recover Plan: Maintain antibiotics Nebulizer treatments Doxy PT/OT Shower Diagnosis/Problems Diagnosis/Problems (1) Bilateral pneumonia Status: Acute Assessment & Plan: Maintain on Rocephin and nebulizer treatments Qualifiers: Pneumonia type: due to unspecified organism Lung location: unspecified part of lung Qualified Codes: J18.9 - Pneumonia, unspecified organism (2) Tularemia, pulmonary Status: Acute Assessment & Plan: Maintain on doxycycline (3) Coagulopathy Status: Acute Assessment & Plan: Ultrasound of liver normal except hepatomegaly awaiting hepatitis panel but CT scan didn't show any source of issues (4) Weight loss Status: Acute (5) Proteinuria Status: Acute Assessment & Plan: Recheck urinalysis tomorrow after hydration for 48 hours Qualifiers: Proteinuria type: unspecified Qualified Codes: R80.9 - Proteinuria, unspecified (6) Anemia Status: Acute Qualifiers: Anemia type: unspecified type Qualified Codes: D64.9 - Anemia, unspecified (7) Elevated liver enzymes Status: Acute (8) Debility Status: Acute (9) Ehrlichiosis Status: Acute (10) Poor motivation Status: Acute Clinical Quality Measures DVT/VTE Risk/Contraindication: Risk Factor Score Per Nursin RFS Level Per Nursing on Admit: 4+=Very High CHONG VILLEGAS DO Jan 28, 2018 10:22
[2018-01-28 10:25] LABS: BILIRUBIN,URINE NEGATIVE (NEGATIVE); COLOR,URINE YELLOW; GLUCOSE, URINE (UA) NEGATIVE (NEGATIVE); KETONES,URINE 2+ (NEGATIVE); LEUKOCYTE ESTERASE ,URINE NEGATIVE (NEGATIVE); NITRITE,URINE NEGATIVE (NEGATIVE); PH,URINE 6 (5-9); PROTEIN,URINE NEGATIVE (NEGATIVE); UROBILINOGEN,URINE 1 MG/DL (NORMAL)
[2018-01-28 10:32] LABS: BACTERIA,URINE NEGATIVE /HPF; CLARITY,URINE CLEAR; SQUAMOUS EPITHELIAL CELL,UR RARE /HPF
[2018-01-28 12:00] VITALS: BP 122/68
[2018-01-28 12:02] LABS: AMPHETAMINE SCREEN, URINE NEGATIVE (NEGATIVE); BARBITURATE SCREEN URINE NEGATIVE (NEGATIVE); BENZODIAZEPINES SCREEN URINE POSITIVE (NEGATIVE); CANNABINOID SCREEN, URINE NEGATIVE (NEGATIVE); COCAINE SCREEN URINE NEGATIVE (NEGATIVE); METHADONE STAT NEGATIVE (NEGATIVE); METHAMPHETAMINE SCREEN URINE S NEGATIVE (NEGATIVE); OPIATE SCREEN URINE NEGATIVE (NEGATIVE); OXYCODONE STAT NEGATIVE (NEGATIVE); PROPOXYPHENE STAT NEGATIVE (NEGATIVE); TRICYCLIC ANTIDEPRESSANTS SCRE NEGATIVE (NEGATIVE)
--- NOTE | 2018-01-28 13:48 | Physical Therapy Evaluation ---
PT Evaluation-General Medical Diagnosis Admission Date Jan 26, 2018 at 12:45 Medical Diagnosis: weakness Onset Date: Jan 26, 2018 Therapy Diagnosis Therapy Diagnosis: impaired mobility, strengh, endurance, balance Height/Weight Height (Feet): 5 Height (Inches): 9.00 Weight (Pounds): 150 Weight (Ounces): 0.0 Precautions Precautions/Isolations: Fall Prevention, Standard Precautions Referral Physician: Deborah Abbasi DO Reason for Referral: Evaluation/Treatment Medical History Additional Medical History tonsillectomy Current History admitted from walk-in clinic with fever and dyspnea, has pneumonia Reviewed History: Yes Social History Home: Single Level Current Living Status: Entry Into Home: Level Entry Patient states he lives with a woman, it is unclear if she will be able to assist him. Prior/Core FIM Prior Level of Function Functional [place] Measure 0=Not Assessed/NA 4=Minimal Assistance 1=Total Assistance 5=Supervision or Setup 2=Maximal Assistance 6=Modified [place] 3=Moderate Assistance 7=Complete [place] Bed Mobility: 7 Transfers (B,C,W/C) (FIM): 7 Gait: 7 PT Evaluation-Current Subjective Patient in bed pre tx, agrees to PT, no complaints of pain. Pt/Family Goals to be independent at home Objective Patient Orientation: Person, Place, Situation Attachments: Oxygen, IV Patient seems slow to process or a little confused even though he is oriented. ROM/Strength ROM Lower Extremities WNL Strength Lower Extremities right lower extremity 5/5 gross, left lower extremity 5/5 gross except for knee extension which is 4/5 Neuromuscular (Tone, Coordination, Reflexes) Patient has no complaints of numbness on his face, no recent reported changes in hearing or vision. Normal smile, no tongue deviation. Sensory Vision: Wears Glasses Hearing: Functional Sensation Right Lower Extremit: Intact Sensation Left Lower Extremity: Intact Transfers Functional [place] Measure 0=Not Assessed/NA 4=Minimal Assistance 1=Total Assistance 5=Supervision or Setup 2=Maximal Assistance 6=Modified [place] 3=Moderate Assistance 7=Complete [place] Transfers (B, C, W/C) (FIM): 5 Scootin Rollin Supine to/from Sit: 5 Sit to/from Stand: 5 bed t/f WC(FIM only if WC use): 5 Cues for safety and hand placement. Gait Mode of Locomotion: Walk Anticipated Mode of Locomotion: Walk Gait (FIM): 4 Distance: 150' Gait Level of Assist: 4 Gait Persons Needed: 1 Gait Assistive Device: None Comments/Gait Description Patient ambulated 150' without an assistive device with CGA. Patient has an unsteady gait but no LOB, he has a mild path deviation. Balance Sitting Static: Normal Sitting Dynamic: Normal Standing Static: Fair Standing Dynamic: Fair Treatment After ambulating and getting back to his room, nurse came to take him to get an MRI. No further treatment at this time. Assessment/Needs Patient has impaired mobility, endurance, balance, strength. He has balance impairments and is at risk for a fall. Rehab Potential: Fair PT Short Term Goals Short Term Goals Time Frame: Feb 04, 2018 Transfers (B,C,W/C) (FIM): 6 Gait (FIM): 5 Gait Distance Comment: 300' Gait Level of Assist: 5 Gait Assistive Device: FWW PT Plan Problem List Problem List: Activity Tolerance, Functional Strength, Safety, Balance, Gait, Transfer, Bed Mobility Treatment/Plan Treatment Plan: Continue Plan of Care Treatment Plan: Bed Mobility, Education, Functional Activity Marissa, Functional Strength, Gait, Safety, Therapeutic Exercise, Transfers Treatment Duration: Feb 04, 2018 Frequency: 6 times per week Estimated Hrs Per Day: .25 hour per day (15-30') Patient and/or Family Agrees t: Yes Safety Risks/Education Patient Education: Gait Training, Transfer Techniques, Correct Positioning, Safety Issues Teaching Recipient: Patient Teaching Methods: Demonstration, Discussion Response to Teaching: Reinforcement Needed Discharge Recommendations Plan Patient will perform bed mobility and transfer training, balance and endurance training, functional strengthening, stair training, gait training, and education , to improve functional mobility and independence at home. Therapy D/C Recommendations: Home w/ Family Support Time/GCodes Time In: 1327 Time Out: 1345 Total Billed Treatment Time: 18 Total Billed Treatment 1 visit EVL 18' RENALDO HARMON PT Jan 28, 2018 13:48
--- NOTE | 2018-01-28 14:53 | Occ Therapy Progress Note ---
Therapy Progress Note OT order received, chart reviewed. Attempted evaluation but pt. at CT scan. Will check back in a.m. [id number] PURVI PURDY OT Jan 28, 2018 14:52
--- NOTE | 2018-01-28 15:19 | Diagnostic Imaging Report ---
PROCEDURE: MR imaging of the brain with and without contrast. TECHNIQUE: Multiplanar, multisequence MR imaging of the brain was performed with and without contrast. INDICATION: Weight loss. Study is performed to evaluate for intracranial mass. No prior studies are available for comparison. The ventricles and sulci are appropriate for the patient's age. Occasional periventricular and subcortical white matter foci are noted, likely on the basis of chronic microvascular ischemia. There is no diffusion restriction identified. There are normal expected flow-voids within the carotid siphons are seen. No acute intra-axial or extra-axial hemorrhage is detected. No abnormal enhancement following contrast administration is seen. The corpus callosum is unremarkable. The sella and parasellar structures are unremarkable. IMPRESSION: Essentially unremarkable MRI of the brain with and without contrast. No intracranial mass or acute abnormality is detected. Dictated by: Dictated on workstation # [id number]
[2018-01-28 16:59] VITALS: BP 113/62
[2018-01-28 19:45] VITALS: BP 114/66
[2018-01-29] VITALS (8 sets, daily range): BP systolic 109–136; BP diastolic 58–74
[2018-01-29] MEDS: ACETAMINOPHEN 325 MG TABLET PO PRN (02:15)
[2018-01-29] MEDS: RT-ALBUTEROL SULF 2.5 MG/3 ML PRE-MIX VIAL INH SCH ×4 (02:50→22:19)
[2018-01-29] MEDS: NS IV 1000 ML 1,000 ML IV SCH (04:16)
[2018-01-29] MEDS ORDERED: KCL 10 MEQ TAB (MICRO K) PO ONE (06:15)
--- NOTE | 2018-01-29 06:21 | Pulmonary Progress Note ---
Subjective Time Seen by Provider: 06:24 Subjective/Events-last exam pt still complains of fever, generalized fatigue, and SOB. Focused Exam Lactate Level 01/26/18 10:25: Lactic Acid Level 0.89 Exam Exam Vital Signs Date Time Temp Pulse Resp B/P (MAP) Pulse Ox O2 Delivery O2 Flow Rate FiO2 01/29/18 04:23 100.0 87 18 132/68 (89) 92 Room Air 01/29/18 02:50 92 Room Air 01/29/18 00:58 101.5 82 18 125/66 (85) 93 Room Air 01/28/18 21:51 88 Room Air 01/28/18 20:00 93 Nasal Cannula 2.00 01/28/18 19:45 96.8 67 18 114/66 (82) 95 Room Air 01/28/18 16:59 97.5 81 18 113/62 (79) 94 Room Air 01/28/18 15:05 92 Room Air 01/28/18 12:00 98.9 86 18 122/68 (86) 93 Nasal Cannula 1.50 01/28/18 09:38 93 Nasal Cannula 2.00 01/28/18 08:00 93 Nasal Cannula 2.00 01/28/18 08:00 99.8 84 18 112/68 (83) 94 Nasal Cannula 1.50 I & O 01/29/18 07:00 Intake Total 2110 ml Output Total 3025 ml Balance -915 ml General Appearance: No Apparent Distress, WD/WN, Cachetic HEENT: PERRL/EOMI, Normal ENT Inspection, Pharynx Normal Neck: Full Range of Motion, Normal Inspection, Non Tender, Supple, Carotid Bruit Respiratory: Chest Non Tender, No Accessory Muscle Use, No Respiratory Distress , Crackles, Decreased Breath Sounds Cardiovascular: Regular Rate, Rhythm, No Edema, No Gallop, No JVD, No Murmur, Normal Peripheral Pulses Capillary Refill: Less Than 3 Seconds Gastrointestinal: normal bowel sounds, non tender, soft Extremity: Normal Capillary Refill, Normal Inspection, Normal Range of Motion, Non Tender, No Calf Tenderness, No Pedal Edema Neurologic/Psychiatric: Alert, Oriented x3, No Motor/Sensory Deficits, Normal Mood/Affect, Depressed Affect, Motor Weakness Skin: Normal Color, Warm/Dry Lymphatic: No Adenopathy Results Lab Laboratory Tests 01/28/18 06:15 Assessment/Plan Assessment/Plan Bilateral pneumonia - -no sputum culture has been obtained. -will attempt to do bronchoscopy tomorrow morning. -Continue Rocephin, doxy -Branch cultures pending -Check legionella, and strep Ag -Will need to continue to follow imaging until complete resolution. Persistent fever without leukocytosis -repan culture, check LA -check echocardiogram -check hiv and hep panel elevated LFTs -check hep panel, check ammonia level -us RUQ - normal Tularemia , Ehrlichiosis -Continue doxy Wt loss -Monitor 233 GIRISH BROWN DO Jan 29, 2018 06:21
[2018-01-29 06:24] LABS: BASOPHILS % (AUTO) 0 % (0-10); EOSINOPHILS # (AUTO) 0.1 10^3/uL (0.0-0.3); EOSINOPHILS % (AUTO) 1 % (0-10); HEMATOCRIT 32 % (40-54); LYMPHOCYTES # (AUTO) 0.8 X 10^3 (1.0-4.0); LYMPHOCYTES % (AUTO) 12 % (12-44); MEAN CORPUSCULAR HEMOGLOBIN 30 PG (25-34); MEAN CORPUSCULAR HGB CONC 35 G/DL (32-36); MEAN CORPUSCULAR VOLUME 85 FL (80-99); MEAN PLATELET VOLUME 10.3 FL (7.4-10.4); MONOCYTES # (AUTO) 0.5 X 10^3 (0.0-1.0); MONOCYTES % (AUTO) 7 % (0-12); NEUTROPHILS # (AUTO) 5.9 X 10^3 (1.8-7.8); NEUTROPHILS % (AUTO) 81 % (42-75); PLATELET COUNT 298 10^3/uL (130-400); RED BLOOD COUNT 3.72 10^6/uL (4.35-5.85); RED CELL DISTRIBUTION WIDTH 13.7 % (10.0-14.5); WHITE BLOOD COUNT 7.3 10^3/uL (4.3-11.0)
[2018-01-29 07:01] LABS: ALANINE AMINOTRANSFERASE 71 U/L (0-55); ALBUMIN 2.7 GM/DL (3.2-4.5); ALKALINE PHOSPHATASE 45 U/L (40-136); BILIRUBIN,TOTAL 0.8 MG/DL (0.1-1.0); BUN/CREATININE RATIO 12; CALCIUM 8.1 MG/DL (8.5-10.1); CARBON DIOXIDE 20 MMOL/L (21-32); CHLORIDE 110 MMOL/L (98-107); CREATININE SERUM 0.58 MG/DL (0.60-1.30); GFR ESTIMATED > 60; GLUCOSE 99 MG/DL (70-105); POTASSIUM 4.1 MMOL/L (3.6-5.0); SODIUM 140 MMOL/L (135-145); TOTAL PROTEIN 5.4 GM/DL (6.4-8.2)
[2018-01-29] MEDS: KCL 20 MEQ TAB (K-DUR) PO SCH ×2 (08:34→17:42)
[2018-01-29] MEDS: DOXYCYCLINE 100 MG (VIBRAMYCIN) TABLET PO SCH ×2 (08:34→17:43)
[2018-01-29] MEDS: GENTAMICIN (ADULT) INJECTION 480 MG in D5W 100 ML IVPB 100 ML IV SCH (10:01)
--- NOTE | 2018-01-29 10:03 | Progress Note-Hospitalist ---
Subjective HPI/CC On Admission Date Seen by Provider: Jan 29, 2018 Time Seen by Provider: 09:15 CC: Fever with dyspnea HPI: This is a 62-year-old white male referred from [facility] who presents with fever and dyspnea found to have bilateral pneumonia but elevated liver enzymes and weight loss gives rise to more evaluation. He denies any smoking or alcohol use but unsure if all of his details are reliable. 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 He reports that he is feeling worse but I don't evaluate anything to be that source of worsening. He is convinced it is Salmonella poisoning of which I'm unclear where he obtain that information and he doesn't know either. Subjective/Events-last exam Patient doing much better MRI of the brain was negative Ammonia was negative Other lab tests pending at this current time We'll be able to ambulate after a Hep-Lock his IV fluids in order to likely discharge tomorrow Checked meds and labs Review of Systems General: Fatigue, Malaise Focused Exam Lactate Level 01/29/18 06:35: Lactic Acid Level 0.64 Lactic Acid Level Objective Exam Vital Signs Vital Signs Date Time Temp Pulse Resp B/P (MAP) Pulse Ox O2 Delivery O2 Flow Rate FiO2 01/29/18 08:59 96.9 77 20 113/68 (83) 95 Room Air 01/28/18 20:00 2.00 Capillary Refill : Less Than 3 Seconds General Appearance: No Apparent Distress, WD/WN, Chronically ill Respiratory: Lungs Clear, Normal Breath Sounds Cardiovascular: Regular Rate, Rhythm, No Edema Neurologic/Psychiatric: Alert, Oriented x3, No Motor/Sensory Deficits, Normal Mood/Affect Results/Procedures Lab Laboratory Tests 01/29/18 05:29 Patient resulted labs reviewed. Assessment/Plan Assessment and Plan Assess & Plan/Chief Complaint Assessment: Pneumonia bilateral Hypokalemia Tularemia Ehrlichiosis Overall poor motivation to recover Plan: Maintain antibiotics Nebulizer treatments Doxy PT/OT Shower DC home tomorrow Diagnosis/Problems Diagnosis/Problems (1) Bilateral pneumonia Status: Acute Assessment & Plan: Maintain on Rocephin and nebulizer treatments Qualifiers: Pneumonia type: due to unspecified organism Lung location: unspecified part of lung Qualified Codes: J18.9 - Pneumonia, unspecified organism (2) Tularemia, pulmonary Status: Acute Assessment & Plan: Maintain on doxycycline (3) Coagulopathy Status: Acute Assessment & Plan: Ultrasound of liver normal except hepatomegaly awaiting hepatitis panel but CT scan didn't show any source of issues (4) Weight loss Status: Acute (5) Proteinuria Status: Resolved Assessment & Plan: Recheck urinalysis tomorrow after hydration for 48 hours Qualifiers: Proteinuria type: unspecified Qualified Codes: R80.9 - Proteinuria, unspecified (6) Anemia Status: Acute Qualifiers: Anemia type: unspecified type Qualified Codes: D64.9 - Anemia, unspecified (7) Elevated liver enzymes Status: Acute (8) Debility Status: Acute (9) Ehrlichiosis Status: Acute (10) Poor motivation Status: Acute Clinical Quality Measures DVT/VTE Risk/Contraindication: Risk Factor Score Per Nursin RFS Level Per Nursing on Admit: 4+=Very High CHONG VILLEGAS DO Jan 29, 2018 10:03
--- NOTE | 2018-01-29 12:10 | Physical Therapy Progress Note ---
Therapy Progress Note MAINTENANCE SHOP TECHNICIAN attempts to see pt but pt declines PT tx. Pt reports that he has no questions and "can transfer & walk by myself". Pt is just wanting towels and new gown so pt can shower. Aide is assisting pt as MAINTENANCE SHOP TECHNICIAN is leaving. MAINTENANCE SHOP TECHNICIAN will check on pt again this afternoon. 1 visit, no tx rendered ОЛЕГ GUILLEN PTA Jan 29, 2018 12:10
--- NOTE | 2018-01-29 14:42 | Diagnostic Imaging Report ---
INDICATION: Shortness of air. Bilateral pneumonia. COMPARISON: 01/26/2018. FINDINGS: Frontal and lateral radiographic views of the chest are obtained and again demonstrate bilateral dense consolidations within the mid lung amaya, right greater than left. There has been interval development of small bibasilar effusions. There is no pneumothorax. Cardiac silhouette and pulmonary vascular stable. Bony structures are unchanged. IMPRESSION: 1. Stable dense consolidations within the bilateral mid lung amaya consistent with probable pneumonia. Continued followup to resolution is recommended. 2. Interval development of small bibasilar effusions. Dictated by: Dictated on workstation # [id number]
--- NOTE | 2018-01-29 15:50 | Physical Therapy Daily Note ---
PT Daily Note-Current Subjective Pt is laying Supine in bed upon arrival. Pt agrees to PT for walk. Pain Location: No Pain Reported Mental Status Patient Orientation: Person, Place, Time, Situation Attachments: IV Transfers Functional [place] Measure 0=Not Assessed/NA 4=Minimal Assistance 1=Total Assistance 5=Supervision or Setup 2=Maximal Assistance 6=Modified [place] 3=Moderate Assistance 7=Complete IndependenceIRFPAI Quality Coding Scale 6 Independent with activity with or without an assistive device 5 Patient requires set up or clean up by helper. Patient completes activity by themselves 4 Supervision or touching assist (CGA). [place] provide cues , steadying assist 3 The helper provides less than half the effort to complete the activity 2 The helper provides more than half the effort to complete the activity 1 Dependent. The helper does all the effort to complete an activity 7 Patient refused to complete or attempt activity 9 The patient did not perform the activity before the current illness or injury 88 Not attempted due to Medical conditions or safety concerns Scootin Rollin Supine to/from Sit: 6 Sit to/from Stand: 6 Weight Bearing Right Lower Extremity: Right Full Weight Bearing Left Lower Extremity: Left Full Weight Bearing Gait Training Distance (FIM): 3=150 ft Distance: 200' Gait Level of Assist: 6 Gait Persons Needed: 1 Gait Assistive Device: None Pt pushes IV pole while walking with normalized gait in hallway. Pt is Mod I. Treatments Pt transfers from bed to EOB to Standing w/o AD. Pt ambulates in hallway pushing IV pole. Pt returns to room to use restroom then returns to Supine in bed. Pt has all needs met at end of tx, including call light. Assessment Current Status: Good Progress Pt ambulates and transfers well at Mod I for both. PT Short Term Goals Short Term Goals Time Frame: Feb 04, 2018 Transfers (B,C,W/C) (FIM): 6 Gait (FIM): 5 Gait Distance Comment: 300' Gait Level of Assist: 5 Gait Assistive Device: FWW PT Plan Problem List Problem List: Activity Tolerance Treatment/Plan Treatment Plan: Continue Plan of Care Treatment Plan: Bed Mobility, Education, Functional Activity Marissa, Functional Strength, Gait, Safety, Therapeutic Exercise, Transfers Treatment Duration: Feb 04, 2018 Frequency: 6 times per week Estimated Hrs Per Day: .25 hour per day (15-30') Patient and/or Family Agrees t: Yes Time/GCodes Time In: 1530 Time Out: 1540 Total Billed Treatment Time: 10 Total Billed Treatment 1, GT (10m) G Codes Necessary: No ОЛЕГ GUILLEN WASHROOM ATTENDANT Jan 29, 2018 15:49
--- NOTE | 2018-01-29 16:39 | Occ Therapy Progress Note ---
Therapy Progress Note [id number] Pt seen in room, up in bed. He reported that he has been taking himself to the bathroom, took a shower himself this morning. Sat to EOB and demonstrated that he could take socks on/off. Bilat UE strength 5/5. Pt does not think he needs OT. No skilled OT needs identified. DC OT. visit LORRAINE ORTEGA OT Jan 29, 2018 16:39
[2018-01-29] MEDS ORDERED: GENTAMICIN XX NR (19:30)
[2018-01-30] MEDS: RT-ALBUTEROL SULF 2.5 MG/3 ML PRE-MIX VIAL INH SCH ×4 (02:48→18:17)
[2018-01-30 04:06] VITALS: BP 120/67
[2018-01-30 06:20] LABS: BASOPHILS % (AUTO) 0 % (0-10); EOSINOPHILS # (AUTO) 0.1 10^3/uL (0.0-0.3); EOSINOPHILS % (AUTO) 1 % (0-10); HEMATOCRIT 34 % (40-54); HEMOGLOBIN 11.8 G/DL (13.3-17.7); LYMPHOCYTES # (AUTO) 1.1 X 10^3 (1.0-4.0); LYMPHOCYTES % (AUTO) 14 % (12-44); MEAN CORPUSCULAR HEMOGLOBIN 29 PG (25-34); MEAN CORPUSCULAR HGB CONC 34 G/DL (32-36); MEAN CORPUSCULAR VOLUME 84 FL (80-99); MEAN PLATELET VOLUME 9.7 FL (7.4-10.4); MONOCYTES # (AUTO) 0.5 X 10^3 (0.0-1.0); MONOCYTES % (AUTO) 7 % (0-12); NEUTROPHILS % (AUTO) 78 % (42-75); PLATELET COUNT 339 10^3/uL (130-400); RED BLOOD COUNT 4.09 10^6/uL (4.35-5.85); RED CELL DISTRIBUTION WIDTH 13.7 % (10.0-14.5); WHITE BLOOD COUNT 7.7 10^3/uL (4.3-11.0)
--- NOTE | 2018-01-30 06:23 | Pulmonary Progress Note ---
Subjective Time Seen by Provider: 06:23 Subjective/Events-last exam Bronchoscopy is scheduled for this AM. Focused Exam Lactate Level 01/29/18 06:35: Lactic Acid Level 0.64 Exam Exam Vital Signs Date Time Temp Pulse Resp B/P (MAP) Pulse Ox O2 Delivery O2 Flow Rate FiO2 01/30/18 04:06 99.2 79 18 120/67 (84) 92 Room Air 01/30/18 02:48 90 Room Air 01/29/18 23:53 99.4 76 18 127/68 (87) 93 Room Air 01/29/18 22:19 93 Room Air 01/29/18 20:00 98.2 69 18 130/74 (92) 95 Room Air 01/29/18 20:00 93 Room Air 01/29/18 16:20 99.6 78 18 109/58 (75) 94 Room Air 01/29/18 15:12 93 Room Air 01/29/18 12:30 98.7 69 18 136/73 (94) 95 Room Air 01/29/18 08:59 96.9 77 20 113/68 (83) 95 Room Air 01/29/18 08:00 95 Room Air 01/29/18 07:27 87 91 01/29/18 07:25 91 Room Air I & O 01/30/18 07:00 Intake Total 1480 ml Output Total 1400 ml Balance 80 ml General Appearance: No Apparent Distress, WD/WN, Chronically ill HEENT: PERRL/EOMI, Normal ENT Inspection, Pharynx Normal Neck: Full Range of Motion, Normal Inspection, Non Tender, Supple, Carotid Bruit Respiratory: Lungs Clear, Normal Breath Sounds Cardiovascular: Regular Rate, Rhythm, No Edema Capillary Refill: Less Than 3 Seconds Gastrointestinal: normal bowel sounds, non tender, soft Extremity: Normal Capillary Refill, Normal Inspection, Normal Range of Motion, Non Tender, No Calf Tenderness, No Pedal Edema Neurologic/Psychiatric: Alert, Oriented x3, No Motor/Sensory Deficits, Normal Mood/Affect Skin: Normal Color, Warm/Dry Lymphatic: No Adenopathy Results Lab Laboratory Tests 01/29/18 05:29 Assessment/Plan Assessment/Plan Bilateral pneumonia - bronchoscopy this morning. -Continue Rocephin, doxy , Gent -Branch cultures pending -legionella, and strep Ag pending -Will need to continue to follow imaging until complete resolution. Persistent fever without leukocytosis 101.8 at 0058 last night -repan culture pending -echocardiogram pending -hiv pending elevated LFTs -check hep panel, ammonia level - normal -us RUQ - normal Tularemia , Ehrlichiosis -Continue Derek styles Wt loss -Monitor 233 GIRISH BROWN DO Jan 30, 2018 06:23
--- NOTE | 2018-01-30 06:24 | Pre-Op Note & Conscious Sedat ---
Pre-Operative Progress Note H&P Reviewed The H&P was reviewed, patient examined and no changes noted. Date H&P Reviewed: Jan 30, 2018 Time H&P Reviewed: 06:23 Pre-Op Diagnosis: unresolving PNA lobar bilat Conscious Sedation Pre-Proced Time Reviewed: 06:24 ASA Class: 3 Airway Mallampati Classification: ([place] appropriate class) I. II. III, IV Lungs Heart ASA score ASA 1: a normal healthy patient ASA 2: a patient with a mild systemic disease (mid diabetes, controlled hypertension, obesity ASA 3: a patient with a severe systemic disease that limits activity (angina , COPD, prior Myocardial infarction) ASA 4: a patient with an incapacitating disease that is a constant threat to life (CHF, renal failure) ASA 5: a moribund patient not expected to survive 24 hrs. (ruptured aneurysm) ASA 6: a declared brain patient whose organs are being harvested. For emergent operations, add the letter E after the classification Grade 3 Sedation Plan: Analgesia, Amnesia, Plan communicated to team members, Discussed options with patient/fam, Discussed risks with patient/fam Note The patient is an appropriate candidate to undergo the planned procedure, sedation, and anesthesia. The patient immediately re-assessed prior to indication. GIRISH BROWN DO Jan 30, 2018 06:24
[2018-01-30 06:30] LABS: INR 1.1 (0.8-1.4); PROTHROMBIN TIME PATIENT 14.2 SEC (12.2-14.7)
[2018-01-30 06:41] LABS: ALANINE AMINOTRANSFERASE 86 U/L (0-55); ALKALINE PHOSPHATASE 57 U/L (40-136); BILIRUBIN,TOTAL 0.8 MG/DL (0.1-1.0); BUN/CREATININE RATIO 13; CALCIUM 8.6 MG/DL (8.5-10.1); CARBON DIOXIDE 21 MMOL/L (21-32); CHLORIDE 103 MMOL/L (98-107); GFR ESTIMATED > 60; GLUCOSE 100 MG/DL (70-105); POTASSIUM 4.2 MMOL/L (3.6-5.0); SODIUM 135 MMOL/L (135-145)
[2018-01-30 06:53] LABS: HEPATITIS C ANTIBODY C Non-Reactive (Non-Reactive)
[2018-01-30] MEDS ORDERED: NS IV 500 ML 500 ML ONE (07:11)
[2018-01-30] MEDS ORDERED: NS IV 500 ML 500 ML IV PRN (07:27)
[2018-01-30] MEDS ORDERED: FLUMAZENIL (ROMAZICON) 0.1 MG/ML 5 ML VIAL INJ PRN (07:30)
[2018-01-30] MEDS ORDERED: NALOXONE 0.4 MG/ML 1 ML (NARCAN) VIAL IVP PRN (07:30)
--- NOTE | 2018-01-30 07:42 | Pulmonary Procedures ---
Pulmonary Procedures Date of Procedure Date of Service: Jan 30, 2018 Bronch Bronchoscopy with Fluoroscopy, bronchoalveolar lavage (BAL), transbronchial washes and, brushes. Preop DX Bilateral pneumonia Postop DX: same Complications: none After informed consent obtained and formal time out pt was sedated using Fentanyl and Versed. Bronchoscope was advanced through the nare and vocal cords. 1% lidocaine was used to anesthetize vocal cords, epiglottis, carmen, and left/right main stem bronchus. An anatomical tour was undertaken down to the segmental bronchi bilaterally. No endobronchial lesions noted. From the RML a bronchoalveolar lavage (BAL), transbronchial washes and, brushes were obtained using fluoroscopy . Pt tolerated procedure well. No complications noted. Stat CXR is pending. GIRISH BROWN DO Jan 30, 2018 07:42
[2018-01-30] MEDS ORDERED: MIDAZOLAM 2 MG/2 ML (VERSED) VIAL ONE ×3 (07:43)
[2018-01-30] MEDS ORDERED: fentaNYL INJECTION 100 MCG/2 ML AMP ONE (07:44)
[2018-01-30] MEDS: fentaNYL INJECTION 100 MCG/2 ML AMP IVP PRN ×2 (07:50→07:56)
[2018-01-30] MEDS: MIDAZOLAM 2 MG/2 ML (VERSED) VIAL IVP PRN ×3 (07:51→08:02)
[2018-01-30 08:30] VITALS: BP 105/64
--- NOTE | 2018-01-30 08:37 | Diagnostic Imaging Report ---
INDICATION: Infiltrates. COMPARISON: 01/29/2018. FINDINGS: There has been reduction in density and severity of bilateral mid to lower lung lateral pulmonary opacities favoring of improvement in radiographic sequelae of pneumonia. Continued followup to resolution, however remains advised. There has been no adverse development. IMPRESSION: Findings suggest an improvement in radiographic density and conspicuity of bilateral infiltrates likely pneumonia. Continued radiographic followup indicated. Dictated by: Dictated on workstation # [id number]
--- NOTE | 2018-01-30 09:03 | Diagnostic Imaging Report ---
INDICATION: Fluoroscopy for bronchoscopy. Fluoroscopy was provided for Dr. Rust during performance of a bronchoscopy. 38 seconds of fluoroscopy was utilized. IMPRESSION: Fluoroscopy for bronchoscopy. Dictated by: Dictated on workstation # [id number]
--- NOTE | 2018-01-30 09:34 | Physical Therapy Daily Note ---
PT Daily Note-Current Subjective Pt reports he is feeling better. Still a bit unsteady and not thinking clearly. Transfers Functional [place] Measure 0=Not Assessed/NA 4=Minimal Assistance 1=Total Assistance 5=Supervision or Setup 2=Maximal Assistance 6=Modified [place] 3=Moderate Assistance 7=Complete IndependenceIRFPAI Quality Coding Scale 6 Independent with activity with or without an assistive device 5 Patient requires set up or clean up by helper. Patient completes activity by themselves 4 Supervision or touching assist (CGA). [place] provide cues , steadying assist 3 The helper provides less than half the effort to complete the activity 2 The helper provides more than half the effort to complete the activity 1 Dependent. The helper does all the effort to complete an activity 7 Patient refused to complete or attempt activity 9 The patient did not perform the activity before the current illness or injury 88 Not attempted due to Medical conditions or safety concerns Transfers (B, C, W/C) (FIM): 6 Scootin Sit to/from Stand: 6 Bed to/from Chair: 6 Weight Bearing Right Lower Extremity: Right Full Weight Bearing Left Lower Extremity: Left Full Weight Bearing Gait Training Gait (FIM): 5 Distance (FIM): 3=150 ft Distance: 650 Gait Level of Assist: 5 Gait Persons Needed: 1 Gait Assistive Device: None lateral ataxia, minor shortness of breath PT Short Term Goals Short Term Goals Time Frame: Feb 04, 2018 Transfers (B,C,W/C) (FIM): 6 Gait (FIM): 5 Gait Distance Comment: 300' Gait Level of Assist: 5 Gait Assistive Device: FWW PT Plan Problem List Problem List: Activity Tolerance, Balance, Gait Treatment/Plan Treatment Plan: Continue Plan of Care Treatment Plan: Bed Mobility, Education, Functional Activity Marissa, Functional Strength, Gait, Safety, Therapeutic Exercise, Transfers Treatment Duration: Feb 04, 2018 Frequency: 6 times per week Estimated Hrs Per Day: .25 hour per day (15-30') Patient and/or Family Agrees t: Yes Time/GCodes Time In: 0900 Time Out: 09 Total Billed Treatment Time: 20 Total Billed Treatment visit, gait 20 min G Codes Necessary: No MARY YEPEZ PT Jan 30, 2018 09:34
[2018-01-30] MEDS: DOXYCYCLINE 100 MG (VIBRAMYCIN) TABLET PO SCH ×2 (09:52→18:34)
[2018-01-30] MEDS: KCL 20 MEQ TAB (K-DUR) PO SCH ×2 (09:52→18:34)
--- NOTE | 2018-01-30 10:33 | Progress Note-Hospitalist ---
Subjective HPI/CC On Admission Date Seen by Provider: Jan 30, 2018 Time Seen by Provider: 10:00 CC: Fever with dyspnea HPI: This is a 62-year-old white male referred from [facility] who presents with fever and dyspnea found to have bilateral pneumonia but elevated liver enzymes and weight loss gives rise to more evaluation. He denies any smoking or alcohol use but unsure if all of his details are reliable. 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 He reports that he is feeling worse but I don't evaluate anything to be that source of worsening. He is convinced it is Salmonella poisoning of which I'm unclear where he obtain that information and he doesn't know either. Subjective/Events-last exam Underwent bronchoscopy today which was unrevealing Awaiting cultures from that procedure Maintained on doxycycline, gentamicin, Rocephin It appears the pneumonia is improving Fever continues so we'll need to monitor through the weekend and maintain on gent due to the severity of the tickborne illness and tularemia Coagulopathy improved at 1.1 Liver enzymes slightly improved Poor motivation to ambulate so I counseled him to do that more today Checked meds and labs Review of Systems General: Fatigue, Malaise Focused Exam Lactate Level 01/29/18 06:35: Lactic Acid Level 0.64 Objective Exam Vital Signs Vital Signs Date Time Temp Pulse Resp B/P (MAP) Pulse Ox O2 Delivery O2 Flow Rate FiO2 01/30/18 09:52 91 Room Air 01/30/18 08:30 96.0 70 20 105/64 (78) 01/28/18 20:00 2.00 Capillary Refill : Less Than 3 Seconds General Appearance: No Apparent Distress, WD/WN, Chronically ill Respiratory: Chest Non Tender, Lungs Clear, Normal Breath Sounds, No Accessory Muscle Use, No Respiratory Distress Cardiovascular: Regular Rate, Rhythm, No Edema, No Gallop, No JVD, No Murmur, Normal Peripheral Pulses Neurologic/Psychiatric: Alert, Oriented x3, No Motor/Sensory Deficits, Normal Mood/Affect Results/Procedures Lab Laboratory Tests 01/30/18 05:38 Patient resulted labs reviewed. Assessment/Plan Assessment and Plan Assess & Plan/Chief Complaint Assessment: Pneumonia bilateral Hypokalemia Tul[place]mia Ehrlichiosis Overall poor motivation to recover Fever Plan: Maintain antibiotics Nebulizer treatments Doxy PT/OT Shower DC home Friday Diagnosis/Problems Diagnosis/Problems (1) Bilateral pneumonia Status: Acute Assessment & Plan: Maintain on Rocephin and nebulizer treatments Qualifiers: Pneumonia type: due to unspecified organism Lung location: unspecified part of lung Qualified Codes: J18.9 - Pneumonia, unspecified organism (2) [place]mia, pulmonary Status: Acute Assessment & Plan: Maintain on doxycycline (3) Coagulopathy Status: Resolved Assessment & Plan: Ultrasound of liver normal except hepatomegaly awaiting hepatitis panel but CT scan didn't show any source of issues (4) Weight loss Status: Acute (5) Proteinuria Status: Resolved Assessment & Plan: Recheck urinalysis tomorrow after hydration for 48 hours Qualifiers: Proteinuria type: unspecified Qualified Codes: R80.9 - Proteinuria, unspecified (6) Anemia Status: Acute Qualifiers: Anemia type: unspecified type Qualified Codes: D64.9 - Anemia, unspecified (7) Elevated liver enzymes Status: Acute (8) Debility Status: Acute (9) Ehrlichiosis Status: Acute (10) Poor motivation Status: Acute (11) Fever Status: Acute Qualifiers: Fever type: unspecified Qualified Codes: R50.9 - Fever, unspecified Clinical Quality Measures DVT/VTE Risk/Contraindication: Risk Factor Score Per Nursin RFS Level Per Nursing on Admit: 4+=Very High CHONG VILLEGAS DO Jan 30, 2018 10:33
[2018-01-30] MEDS ORDERED: LIDOCAINE JELLY 2% (XYLOCAINE) 30 ML TUBE TOP ONE (10:45)
[2018-01-30] MEDS ORDERED: LIDOCAINE 4% INJ (XYLOCAINE) 5ML AMP INJ ONE (10:45)
[2018-01-30] MEDS ORDERED: LIDOCAINE PF 1% 2 ML AMP INJ ONE (10:45)
[2018-01-30] MEDS: GENTAMICIN (ADULT) INJECTION 480 MG in D5W 100 ML IVPB 100 ML IV SCH (11:02)
[2018-01-30 12:30] VITALS: BP 104/67
[2018-01-30 15:30] VITALS: BP 96/77
[2018-01-30 20:02] VITALS: BP 102/65
[2018-01-31] VITALS: BP 98/72
[2018-01-31] MEDS: RT-ALBUTEROL SULF 2.5 MG/3 ML PRE-MIX VIAL INH SCH ×4 (02:33→19:16)
[2018-01-31 04:36] VITALS: BP 104/58
[2018-01-31] MEDS: KCL 20 MEQ TAB (K-DUR) PO SCH ×2 (06:12→17:14)
[2018-01-31] MEDS: DOXYCYCLINE 100 MG (VIBRAMYCIN) TABLET PO SCH ×2 (06:12→17:14)
--- NOTE | 2018-01-31 06:54 | Pulmonary Progress Note ---
Subjective Time Seen by Provider: 06:53 Subjective/Events-last exam pt still complains of SOB. Focused Exam Lactate Level 01/29/18 06:35: Lactic Acid Level 0.64 Exam Exam Vital Signs Date Time Temp Pulse Resp B/P (MAP) Pulse Ox O2 Delivery O2 Flow Rate FiO2 01/31/18 04:36 98.9 71 16 104/58 (73) 95 Nasal Cannula 2.00 01/31/18 02:34 95 Nasal Cannula 2.00 01/31/18 00:00 98.7 74 18 98/72 (81) 96 Room Air 01/30/18 20:02 99.2 82 18 102/65 (77) 95 Room Air 01/30/18 18:18 96 Nasal Cannula 2.00 01/30/18 15:30 97.3 78 18 96/77 (83) 95 Room Air 01/30/18 15:02 87 Room Air 01/30/18 12:30 97.8 73 20 104/67 (79) 94 Room Air 01/30/18 09:52 91 Room Air 01/30/18 08:45 Room Air 01/30/18 08:30 96.0 70 20 105/64 (78) 93 Room Air 01/30/18 08:28 18 01/30/18 07:00 95 Room Air I & O 01/31/18 07:00 Intake Total 7630 ml Balance 7630 ml General Appearance: No Apparent Distress, WD/WN, Chronically ill HEENT: PERRL/EOMI, Normal ENT Inspection, Pharynx Normal Neck: Full Range of Motion, Normal Inspection, Non Tender, Supple, Carotid Bruit Respiratory: Chest Non Tender, Lungs Clear, Normal Breath Sounds, No Accessory Muscle Use, No Respiratory Distress Cardiovascular: Regular Rate, Rhythm, No Edema, No Gallop, No JVD, No Murmur, Normal Peripheral Pulses Capillary Refill: Less Than 3 Seconds Gastrointestinal: normal bowel sounds, non tender, soft Extremity: Normal Capillary Refill, Normal Inspection, Normal Range of Motion, Non Tender, No Calf Tenderness, No Pedal Edema Neurologic/Psychiatric: Alert, Oriented x3, No Motor/Sensory Deficits, Normal Mood/Affect Skin: Normal Color, Warm/Dry Lymphatic: No Adenopathy Results Lab Laboratory Tests 01/30/18 05:38 Assessment/Plan Assessment/Plan Bilateral pneumonia - s/p bronchoscopy 01/30/18 -- last fever 01/29 - Rocephin, doxy , Gent -Branch cultures pending -legionella, and strep Ag pending -Will need to continue to follow imaging until complete resolution. Persistent fever without leukocytosis 101.8 at 0058 last night -repan culture pending -echocardiogram reviewed - no acute process and EF is normal -hiv NR elevated LFTs -check hep panel, ammonia level - normal -us RUQ - normal [place] , Ehrlichiosis -Continue doxy , and Gent Wt loss -Monitor 233 GIRISH BROWN DO Jan 31, 2018 06:54
[2018-01-31 08:30] VITALS: BP 100/66
--- NOTE | 2018-01-31 09:51 | Physical Therapy Daily Note ---
PT Daily Note-Current Subjective Pt reports he is up and walking on his own and no longer needs therapy. Mental Status Patient Orientation: Person, Time Attachments: IV Transfers Functional [place] Measure 0=Not Assessed/NA 4=Minimal Assistance 1=Total Assistance 5=Supervision or Setup 2=Maximal Assistance 6=Modified [place] 3=Moderate Assistance 7=Complete IndependenceIRFPAI Quality Coding Scale 6 Independent with activity with or without an assistive device 5 Patient requires set up or clean up by helper. Patient completes activity by themselves 4 Supervision or touching assist (CGA). [place] provide cues , steadying assist 3 The helper provides less than half the effort to complete the activity 2 The helper provides more than half the effort to complete the activity 1 Dependent. The helper does all the effort to complete an activity 7 Patient refused to complete or attempt activity 9 The patient did not perform the activity before the current illness or injury 88 Not attempted due to Medical conditions or safety concerns Transfers (B, C, W/C) (FIM): 7 Supine to/from Sit: 7 Sit to/from Stand: 7 Bed to/from Chair: 7 Pt demonstrates independent mobility. Weight Bearing Right Lower Extremity: Right Full Weight Bearing Left Lower Extremity: Left Full Weight Bearing Gait Training Gait (FIM): 7 Distance: 1000 Gait Assistive Device: None Assessment Patient is now off of isolation. He demonstrates sufficient balance and mobility to be independent within this facility. Pt encouraged to walk regularly throughout the remainder of his hospitalization. PT Short Term Goals Short Term Goals Time Frame: Feb 04, 2018 Transfers (B,C,W/C) (FIM): 6 Gait (FIM): 5 Gait Distance Comment: 300' Gait Level of Assist: 5 Gait Assistive Device: FWW PT Plan Treatment/Plan Treatment Plan: Discontinue PT, goals met Treatment Plan: Bed Mobility, Education, Functional Activity Marissa, Functional Strength, Gait, Safety, Therapeutic Exercise, Transfers Treatment Duration: Feb 04, 2018 Frequency: 6 times per week Estimated Hrs Per Day: .25 hour per day (15-30') Patient and/or Family Agrees t: Yes Safety Risks/Education Patient Education: Gait Training Teaching Recipient: Patient Teaching Methods: Demonstration Response to Teaching: Verbalize Understanding Discharge Recommendations Plan Patient is dismissed from therapy with goals met. He is moving about the facility independent. Therapy D/C Recommendations: Home Independently Equpiment Recommendations-D/C: None Time/GCodes Time In: 0940 Time Out: 0950 Total Billed Treatment Time: 10 Total Billed Treatment visit, discharge G Codes Necessary: No MARY YEPEZ PT Jan 31, 2018 09:51
[2018-01-31] MEDS: GENTAMICIN (ADULT) INJECTION 480 MG in D5W 100 ML IVPB 100 ML IV SCH (10:06)
--- NOTE | 2018-01-31 10:46 | Progress Note (SOAP) ---
AKIL BAR A MEDICAL STUDENT 01/31/18 1046: Subjective Subjective/Events-last exam 62 year old male who is here being treated for tularemia for the last 5 days has been afebrile for the last 24 hours. Pt state he is feeling improved and his breathing is improved; however, he is still needing 2L O2 by NC to maintain O2 sat. Review of Systems Time Seen by Provider: 08:02 Focused Exam Lactate Level 01/29/18 06:35: Lactic Acid Level 0.64 Objective Exam Last Set of Vital Signs Vital Signs Date Time Temp Pulse Resp B/P (MAP) Pulse Ox O2 Delivery O2 Flow Rate FiO2 01/31/18 09:36 95 Nasal Cannula 2.00 01/31/18 08:30 98.0 78 18 100/66 (77) Capillary Refill : Less Than 3 Seconds I&O Intake and Output 01/31/18 00:00 Intake Total 5380 ml Balance 5380 ml Intake Oral 1130 ml IV Total 4250 ml # Voids 7 # Bowel Movements 2 General: Alert, Oriented X3, Cooperative, No Acute Distress HEENT: EOMI Lungs: Clear to Auscultation Heart: Regular Rate, Other Abdomen: Normal Bowel Sounds, Soft, No Tenderness Extremities: No Edema, Other (2+ radial pulse bilaterally) Neuro: Normal Speech Results/Procedures Lab Laboratory Tests Test 01/29/18 19:30 01/30/18 05:38 Range/Units Random Gentamicin Level 0.9 <=10.0 UG/ML White Blood Count 7.7 4.3-11.0 10^3/uL Red Blood Count 4.09 L 4.35-5.85 10^6/uL Hemoglobin 11.8 L 13.3-17.7 G/DL Hematocrit 34 L 40-54 % Mean Corpuscular Volume 84 80-99 FL Mean Corpuscular Hemoglobin 29 25-34 PG Mean Corpuscular Hemoglobin Concent 34 32-36 G/DL Red Cell Distribution Width 13.7 10.0-14.5 % Platelet Count 339 130-400 10^3/uL Mean Platelet Volume 9.7 7.4-10.4 FL Neutrophils (%) (Auto) 78 H 42-75 % Lymphocytes (%) (Auto) 14 12-44 % Monocytes (%) (Auto) 7 0-12 % Eosinophils (%) (Auto) 1 0-10 % Basophils (%) (Auto) 0 0-10 % Neutrophils # (Auto) 6.0 1.8-7.8 X 10^3 Lymphocytes # (Auto) 1.1 1.0-4.0 X 10^3 Monocytes # (Auto) 0.5 0.0-1.0 X 10^3 Eosinophils # (Auto) 0.1 0.0-0.3 10^3/uL Basophils # (Auto) 0.0 0.0-0.1 10^3/uL Prothrombin Time 14.2 12.2-14.7 SEC INR Comment 1.1 0.8-1.4 Sodium Level 135 135-145 MMOL/L Potassium Level 4.2 3.6-5.0 MMOL/L Chloride Level 103 98-107 MMOL/L Carbon Dioxide Level 21 21-32 MMOL/L Anion Gap 11 5-14 MMOL/L Blood Urea Nitrogen 8 7-18 MG/DL Creatinine 0.60 0.60-1.30 MG/DL Estimat Glomerular Filtration Rate > 60 BUN/Creatinine Ratio 13 Glucose Level 100 70-105 MG/DL Calcium Level 8.6 8.5-10.1 MG/DL Total Bilirubin 0.8 0.1-1.0 MG/DL Aspartate Amino Transf (AST/SGOT) 69 H 5-34 U/L Alanine Aminotransferase (ALT/SGPT) 86 H 0-55 U/L Alkaline Phosphatase 57 40-136 U/L Total Protein 6.0 L 6.4-8.2 GM/DL Albumin 3.0 L 3.2-4.5 GM/DL Microbiology 01/29/18 Blood Culture - Preliminary, Resulted No growth 01/26/18 Stool Culture - Preliminary, Resulted No stool pathogens as yet isolated. ... 01/30/18 Gram Stain - Final, Resulted 01/30/18 Bronchial Culture - Preliminary, Resulted No growth 01/30/18 Fungal Culture, Resulted Pending Assessment/Plan Assessment/Plan Assessment & Plan Tularemia - continue IV Gentamicin E. Chaffeensis - continue IV Doxy Will reevaluate pt tomorrow morning. Clinical Quality Measures DVT/VTE Risk/Contraindication: Risk Factor Score Per Nursin RFS Level Per Nursing on Admit: 4+=Very High FRANCHESKA DICKSON MD 01/31/182106: Assessment/Plan Assessment/Plan (1) Bilateral pneumonia Status: Acute Assessment & Plan: 01/31 Started on rocephin and doxycycline initially and remains on these currently. Legionella and strep antigens negative. Blood cultures with no growth. Bronch done 01/29, culture negative to date. Suspected tularemia pneumonia as noted below. Still requiring 2 lpm supplemental oxygen, encouraged increased activity. Qualifiers: Qualified Codes: J18.9 - Pneumonia, unspecified organism (2) Anemia Status: Acute Assessment & Plan: 01/31 unclear etiology, check iron studies, peripheral smear , LDH, stool occult blood. Qualifiers: Qualified Codes: D64.9 - Anemia, unspecified (3) Tularemia, pulmonary Status: Acute Assessment & Plan: 01/31 tularemia antibody positive, but not markedly high and with one value is not clearly diagnostic of acute infection, given clinical picture however does seem likely, continue gentamicin for at least 7 days. Afebrile last 24 hours. Consider rechecking antibody titer later to confirm tularemia. (4) Ehrlichiosis Status: Acute Assessment & Plan: 01/31 Possible, serology positive IgG at relatively low level and negative IgM, difficult to tell if acute or old infection without follow-up serologies which could be obtained later. Is on doxycycline- will need 10 day course or for 3-5 days after defervescence. Last fever 01/29 at just after midnight. (5) Coagulopathy Status: Resolved Assessment & Plan: Suspect secondary to liver dysfunction. INR normalized. (6) Elevated liver enzymes Status: Acute Assessment & Plan: 01/31 suspected to be secondary to infections noted above. Hepatitis panel negative. HIV negative. Ultrasound unremarkable and CT abdomen/ pelvis unremarkable except for possible nonspecific enteritis. (7) Fever Status: Acute Assessment & Plan: 01/31 afebrile since 01/29 early am, echocardiogram unremarkable, blood cultures no growth on 2 separate days, stool culture negative, bronc cultures no growth so far Qualifiers: Qualified Codes: R50.9 - Fever, unspecified (8) DVT prophylaxis Status: Acute Assessment & Plan: SCDs. Is high risk, however, will recheck INR in the am and consider enoxaparin if still normal. Supervisory-Addendum Brief Supervisory Addendum Patient seen and evaluated with FRANCIS Bar. I personally performed physical exam and agree with documentation unless otherwise noted. See problem list for my assessment and plan. AKIL BAR A MEDICAL STUDENT Jan 31, 2018 10:46 FRANCHESKA DICKSON MD Jan 31, 2018 21:07
[2018-01-31 12:30] VITALS: BP 97/62
[2018-01-31 16:40] VITALS: BP 90/57
[2018-01-31 20:00] VITALS: BP 107/66
[2018-02-01 00:09] VITALS: BP 103/57
[2018-02-01] MEDS: RT-ALBUTEROL SULF 2.5 MG/3 ML PRE-MIX VIAL INH SCH ×3 (01:42→20:29)
[2018-02-01 05:16] LABS: ABSOLUTE RETIC # 52 10e9/L (24-90); BASOPHILS % (AUTO) 0 % (0-10); EOSINOPHILS # (AUTO) 0.1 10^3/uL (0.0-0.3); EOSINOPHILS % (AUTO) 1 % (0-10); HEMATOCRIT 35 % (40-54); HEMOGLOBIN 11.9 G/DL (13.3-17.7); LYMPHOCYTES # (AUTO) 1.3 X 10^3 (1.0-4.0); LYMPHOCYTES % (AUTO) 18 % (12-44); MEAN CORPUSCULAR HEMOGLOBIN 29 PG (25-34); MEAN CORPUSCULAR HGB CONC 34 G/DL (32-36); MEAN CORPUSCULAR VOLUME 85 FL (80-99); MEAN PLATELET VOLUME 9.4 FL (7.4-10.4); MONOCYTES # (AUTO) 0.6 X 10^3 (0.0-1.0); MONOCYTES % (AUTO) 8 % (0-12); NEUTROPHILS % (AUTO) 72 % (42-75); PLATELET COUNT 362 10^3/uL (130-400); RED BLOOD COUNT 4.15 10^6/uL (4.35-5.85); RED CELL DISTRIBUTION WIDTH 13.6 % (10.0-14.5); RETICULOCYTE % 1.25 % (0.50-2.40)
[2018-02-01 05:33] LABS: INR 1.1 (0.8-1.4); PROTHROMBIN TIME PATIENT 14.3 SEC (12.2-14.7)
[2018-02-01 05:44] LABS: ALANINE AMINOTRANSFERASE 139 U/L (0-55); ALBUMIN 3.1 GM/DL (3.2-4.5); ALKALINE PHOSPHATASE 59 U/L (40-136); BILIRUBIN,TOTAL 0.6 MG/DL (0.1-1.0); BUN/CREATININE RATIO 16; CALCIUM 8.8 MG/DL (8.5-10.1); CARBON DIOXIDE 22 MMOL/L (21-32); CHLORIDE 102 MMOL/L (98-107); CREATININE SERUM 0.61 MG/DL (0.60-1.30); GFR ESTIMATED > 60; GLUCOSE 107 MG/DL (70-105); POTASSIUM 4.4 MMOL/L (3.6-5.0); SODIUM 136 MMOL/L (135-145); TOTAL PROTEIN 6.3 GM/DL (6.4-8.2)
[2018-02-01 05:46] LABS: BAND NEUTROPHILS 5 %; EOSINOPHILS % (MANUAL) 5 %; LYMPHOCYTES % (MANUAL) 16 %; MONOCYTES % (MANUAL) 9 %; NEUTROPHILS % (MANUAL) 65 %; RBC MORPH NORMAL
[2018-02-01] MEDS: KCL 20 MEQ TAB (K-DUR) PO SCH ×2 (06:09→16:55)
[2018-02-01] MEDS: DOXYCYCLINE 100 MG (VIBRAMYCIN) TABLET PO SCH ×2 (06:09→16:55)
[2018-02-01] MEDS ORDERED: RT-ALBUTEROL SULF 2.5 MG/3 ML PRE-MIX VIAL INH PRN (09:00)
[2018-02-01 09:07] VITALS: BP 109/76
[2018-02-01] MEDS: GENTAMICIN (ADULT) INJECTION 480 MG in D5W 100 ML IVPB 100 ML IV SCH (09:10)
--- NOTE | 2018-02-01 11:40 | Progress Note (SOAP) ---
AKIL BAR A MEDICAL STUDENT 02/01/18 1140: Subjective Subjective/Events-last exam Pt states that he still has right sided pain with breathing but states he does feel like he is improving. Review of Systems Time Seen by Provider: 08:48 Objective Exam Last Set of Vital Signs Vital Signs Date Time Temp Pulse Resp B/P (MAP) Pulse Ox O2 Delivery O2 Flow Rate FiO2 02/01/18 09:07 100.0 82 18 109/76 (87) 97 Nasal Cannula 2.00 02/01/18 08:23 28 Capillary Refill : Less Than 3 Seconds I&O Intake and Output 02/01/18 00:00 Intake Total 9350 ml Balance 9350 ml Intake Oral 1350 ml IV Total 8000 ml # Voids 6 # Bowel Movements 2 General: Alert, Oriented X3, Cooperative Lungs: Clear to Auscultation Heart: Regular Rate Extremities: No Edema Results/Procedures Lab Laboratory Tests 02/01/18 04:43: White Blood Count 7.0, Red Blood Count 4.15L, Hemoglobin 11.9L, Hematocrit 35L, Mean Corpuscular Volume 85, Mean Corpuscular Hemoglobin 29, Mean Corpuscular Hemoglobin Concent 34, Red Cell Distribution Width 13.6, Platelet Count 362, Mean Platelet Volume 9.4, Neutrophils (%) (Auto) 72, Lymphocytes (%) (Auto) 18, Monocytes (%) (Auto) 8, Eosinophils (%) (Auto) 1, Basophils (%) (Auto) 0, Neutrophils # (Auto) 5.0, Lymphocytes # (Auto) 1.3, Monocytes # (Auto) 0.6, Eosinophils # (Auto) 0.1, Basophils # (Auto) 0.0, Neutrophils % (Manual) 65, Lymphocytes % (Manual) 16, Monocytes % (Manual) 9, Eosinophils % (Manual) 5, Band Neutrophils 5, Blood Morphology Comment NORMAL, Absolute Reticulocyte Count 52, Percent Reticulocyte Count 1.25, Prothrombin Time 14.3, INR Comment 1.1, Activated Partial Thromboplast Time 39H, Sodium Level 136, Potassium Level 4.4, Chloride Level 102, Carbon Dioxide Level 22, Anion Gap 12, Blood Urea Nitrogen 10, Creatinine 0.61, Estimat Glomerular Filtration Rate > 60, BUN/ Creatinine Ratio 16, Glucose Level 107H, Calcium Level 8.8, Total Bilirubin 0.6 , Aspartate Amino Transf (AST/SGOT) 96H, Alanine Aminotransferase (ALT/SGPT) 139H, Alkaline Phosphatase 59, Lactate Dehydrogenase 234H, Total Protein 6.3L, Albumin 3.1L Microbiology 01/29/18 Blood Culture - Preliminary, Resulted No growth 01/26/18 Stool Culture - Preliminary, Resulted No stool pathogens as yet isolated. ... 01/30/18 Gram Stain - Final, Resulted 01/30/18 Bronchial Culture - Preliminary, Resulted No growth 01/30/18 Fungal Culture, Resulted Pending Assessment/Plan Assessment/Plan Assessment & Plan Tularemia - based on pt's story and exposure to ticks and lab findings, this is a likely Dx, will continue IV Gentamicin, confirmation possibly with 4 fold increase of antibody titers Ehrlichiosis - is possibly but unlikely due to Ab titers, confirmation only possible with 4 fold increase of titers, pt is on day 7 of doxy Anemia - LDH and iron studies ordered to evaluate possible cause Pneumonia - Pt is on day seven of Rocephin for empiric coverage of possible bacterial pneumonia Clinical Quality Measures DVT/VTE Risk/Contraindication: Risk Factor Score Per Nursin RFS Level Per Nursing on Admit: 4+=Very High FRANCHESKA DICKSON MD 02/01/18 1152: Assessment/Plan Assessment/Plan Assessment & Plan (1) Bilateral pneumonia Status: Acute Assessment & Plan: 01/31 Started on rocephin and doxycycline initially and remains on these currently. Legionella and strep antigens negative. Blood cultures with no growth. Bronch done 01/29, culture negative to date. Suspected tularemia pneumonia as noted below. Still requiring 2 lpm supplemental oxygen, encouraged increased activity. 02/01- Tmax 100.0, continue ceftriaxone and doxycycline, continue to monitor bronch cultures. Qualifiers: Qualified Codes: J18.9 - Pneumonia, unspecified organism (2) Anemia Status: Acute Assessment & Plan: 01/31 unclear etiology, check iron studies, peripheral smear , LDH, stool occult blood. 02/01 labs pending, evaluate when available Qualifiers: Qualified Codes: D64.9 - Anemia, unspecified (3) Tularemia, pulmonary Status: Acute Assessment & Plan: 01/31 tularemia antibody positive, but not markedly high and with one value is not clearly diagnostic of acute infection, given clinical picture however does seem likely, continue gentamicin for at least 7 days. Afebrile last 24 hours. Consider rechecking antibody titer later to confirm tularemia. (4) Ehrlichiosis Status: Acute Assessment & Plan: 01/31 Possible, serology positive IgG at relatively low level and negative IgM, difficult to tell if acute or old infection without follow-up serologies which could be obtained later. Is on doxycycline- will need 10 day course or for 3-5 days after defervescence. Last fever 01/29 at just after midnight. (5) Coagulopathy Status: Resolved Assessment & Plan: Suspect secondary to liver dysfunction. INR normalized. (6) Elevated liver enzymes Status: Acute Assessment & Plan: 01/31 suspected to be secondary to infections noted above. Hepatitis panel negative. HIV negative. Ultrasound unremarkable and CT abdomen/ pelvis unremarkable except for possible nonspecific enteritis. (7) Fever Status: Acute Assessment & Plan: 01/31 afebrile since 01/29 early am, echocardiogram unremarkable, blood cultures no growth on 2 separate days, stool culture negative, bronc cultures no growth so far Qualifiers: Qualified Codes: R50.9 - Fever, unspecified (8) DVT prophylaxis Status: Acute Assessment & Plan: SCDs. Is high risk, however, INR still normal 02/01, will start enoxaparin Supervisory-Addendum Brief Supervisory Addendum Patient seen and evaluated by me and physical exam performed by me today with MS3 Tim Bar, agree with documentation unless otherwise noted. See problem list for my assessment and plan. AKIL BAR MEDICAL STUDENT Feb 01, 2018 11:40 FRANCHESKA DICKSON MD Feb 01, 2018 11:52
[2018-02-01 16:49] VITALS: BP 103/56
[2018-02-02 00:43] VITALS: BP 119/56
[2018-02-02 06:05] LABS: HEMOGLOBIN 12.3 G/DL (13.3-17.7); MEAN PLATELET VOLUME 9.2 FL (7.4-10.4); RED BLOOD COUNT 4.18 10^6/uL (4.35-5.85); RED CELL DISTRIBUTION WIDTH 13.2 % (10.0-14.5); WHITE BLOOD COUNT 7.5 10^3/uL (4.3-11.0)
[2018-02-02] MEDS: DOXYCYCLINE 100 MG (VIBRAMYCIN) TABLET PO SCH (06:18)
[2018-02-02] MEDS: KCL 20 MEQ TAB (K-DUR) PO SCH (06:18)
[2018-02-02 06:23] LABS: ALANINE AMINOTRANSFERASE 133 U/L (0-55); ALBUMIN 3.1 GM/DL (3.2-4.5); ALKALINE PHOSPHATASE 57 U/L (40-136); BILIRUBIN,TOTAL 0.6 MG/DL (0.1-1.0); BUN/CREATININE RATIO 16; CALCIUM 8.9 MG/DL (8.5-10.1); CARBON DIOXIDE 23 MMOL/L (21-32); CHLORIDE 103 MMOL/L (98-107); CREATININE SERUM 0.68 MG/DL (0.60-1.30); GFR ESTIMATED > 60; GLUCOSE 106 MG/DL (70-105); POTASSIUM 4.3 MMOL/L (3.6-5.0); SODIUM 137 MMOL/L (135-145); TOTAL PROTEIN 6.4 GM/DL (6.4-8.2)
[2018-02-02 08:00] VITALS: BP 102/60
[2018-02-02] MEDS: RT-ALBUTEROL SULF 2.5 MG/3 ML PRE-MIX VIAL INH SCH (08:18)
[2018-02-02] MEDS: GENTAMICIN (ADULT) INJECTION 480 MG in D5W 100 ML IVPB 100 ML IV SCH (08:44)
--- NOTE | 2018-02-02 09:59 | Pulmonary Progress Note ---
Subjective Time Seen by Provider: 09:59 Subjective/Events-last exam PT is doing better. Exam Exam Vital Signs Date Time Temp Pulse Resp B/P (MAP) Pulse Ox O2 Delivery O2 Flow Rate FiO2 02/02/18 08:18 93 Room Air 02/02/18 08:00 99.2 81 20 102/60 (74) 96 Nasal Cannula 2.00 02/02/18 00:43 98.6 78 19 119/56 (77) 96 Nasal Cannula 2.00 02/01/18 20:29 97 Nasal Cannula 2.00 02/01/18 20:05 97 Nasal Cannula 2.00 02/01/18 16:49 99.8 74 20 103/56 (72) 96 Nasal Cannula 2.00 I & O 02/02/18 07:00 Intake Total 7382 ml Balance 7382 ml General Appearance: No Apparent Distress, WD/WN, Chronically ill HEENT: PERRL/EOMI, Normal ENT Inspection, Pharynx Normal Neck: Full Range of Motion, Normal Inspection, Non Tender, Supple, Carotid Bruit Respiratory: Chest Non Tender, Lungs Clear, Normal Breath Sounds, No Accessory Muscle Use, No Respiratory Distress Cardiovascular: Regular Rate, Rhythm, No Edema, No Gallop, No JVD, No Murmur, Normal Peripheral Pulses Capillary Refill: Less Than 3 Seconds Gastrointestinal: normal bowel sounds, non tender, soft Extremity: Normal Capillary Refill, Normal Inspection, Normal Range of Motion, Non Tender, No Calf Tenderness, No Pedal Edema Neurologic/Psychiatric: Alert, Oriented x3, No Motor/Sensory Deficits, Normal Mood/Affect Skin: Normal Color, Warm/Dry Lymphatic: No Adenopathy Results Lab Laboratory Tests 02/01/18 04:43 02/02/18 05:42 Assessment/Plan Assessment/Plan Bilateral pneumonia - s/p bronchoscopy 01/30/18 -- last fever 01/29 - Rocephin, doxy , Gent -Branch cultures pending -legionella, and strep Ag pending -CXR appears to be improving -Will need to continue to follow imaging until complete resolution. Persistent fever without leukocytosis 101.8 at 0058 last night -echocardiogram reviewed - no acute process and EF is normal -hiv NR elevated LFTs -check hep panel, ammonia level - normal -us RUQ - normal Tularemia , Ehrlichiosis -Continue doxy , and Gent Wt loss -Monitor 232 GIRISH BROWN DO Feb 02, 2018 09:59
--- NOTE | 2018-02-02 11:27 | Progress Note (SOAP) ---
Subjective Subjective/Events-last exam Pt ambulating in halls on room air. Feeling well and requesting discharge. Review of Systems Date Seen by Provider: Feb 02, 2018 Time Seen by Provider: 12:15 Objective Exam Last Set of Vital Signs Vital Signs Date Time Temp Pulse Resp B/P (MAP) Pulse Ox O2 Delivery O2 Flow Rate FiO2 02/02/18 08:18 93 Room Air 02/02/18 08:00 99.2 81 20 102/60 (74) 2.00 02/01/18 08:23 28 Capillary Refill : Less Than 3 Seconds I&O Intake and Output 02/02/18 00:00 Intake Total 9382 ml Balance 9382 ml Intake Oral 1220 ml IV Total 8162 ml # Voids 5 # Bowel Movements 1 Results/Procedures Lab Laboratory Tests 02/02/18 05:42: White Blood Count 7.5, Red Blood Count 4.18L, Hemoglobin 12.3L, Hematocrit 36L, Mean Corpuscular Volume 86, Mean Corpuscular Hemoglobin 29, Mean Corpuscular Hemoglobin Concent 34, Red Cell Distribution Width 13.2, Platelet Count 353, Mean Platelet Volume 9.2, Sodium Level 137, Potassium Level 4.3, Chloride Level 103, Carbon Dioxide Level 23, Anion Gap 11, Blood Urea Nitrogen 11, Creatinine 0.68, Estimat Glomerular Filtration Rate > 60, BUN/Creatinine Ratio 16, Glucose Level 106H, Calcium Level 8.9, Total Bilirubin 0.6, Aspartate Amino Transf (AST/ SGOT) 79H, Alanine Aminotransferase (ALT/SGPT) 133H, Alkaline Phosphatase 57, Total Protein 6.4, Albumin 3.1L Microbiology 01/29/18 Blood Culture - Preliminary, Resulted No growth 01/26/18 Stool Culture - Final, Complete Negative for Salmonella... 01/30/18 Gram Stain - Final, Resulted 01/30/18 Bronchial Culture - Final, Resulted No growth 01/30/18 Fungal Culture, Resulted Pending Assessment/Plan Assessment/Plan Assessment & Plan (1) Bilateral pneumonia Status: Acute Assessment & Plan: 01/31 Started on rocephin and doxycycline initially and remains on these currently. Legionella and strep antigens negative. Blood cultures with no growth. Bronch done 01/29, culture negative to date. Suspected tularemia pneumonia as noted below. Still requiring 2 lpm supplemental oxygen, encouraged increased activity. 02/01- Tmax 100.0, continue ceftriaxone and doxycycline, continue to monitor bronch cultures. Qualifiers: Qualified Codes: J18.9 - Pneumonia, unspecified organism (2) Anemia Status: Acute Assessment & Plan: 01/31 unclear etiology, check iron studies, peripheral smear , LDH, stool occult blood. 02/01 labs pending, evaluate when available Qualifiers: Qualified Codes: D64.9 - Anemia, unspecified (3) Tularemia, pulmonary Status: Acute Assessment & Plan: 01/31 tularemia antibody positive, but not markedly high and with one value is not clearly diagnostic of acute infection, given clinical picture however does seem likely, continue gentamicin for at least 7 days. Afebrile last 24 hours. Consider rechecking antibody titer later to confirm tularemia. (4) Ehrlichiosis Status: Acute Assessment & Plan: 01/31 Possible, serology positive IgG at relatively low level and negative IgM, difficult to tell if acute or old infection without follow-up serologies which could be obtained later. Is on doxycycline- will need 10 day course or for 3-5 days after defervescence. Last fever 01/29 at just after midnight. (5) Coagulopathy Status: Resolved Assessment & Plan: Suspect secondary to liver dysfunction. INR normalized. (6) Elevated liver enzymes Status: Acute Assessment & Plan: 01/31 suspected to be secondary to infections noted above. Hepatitis panel negative. HIV negative. Ultrasound unremarkable and CT abdomen/ pelvis unremarkable except for possible nonspecific enteritis. (7) Fever Status: Acute Assessment & Plan: 01/31 afebrile since 01/29 early am, echocardiogram unremarkable, blood cultures no growth on 2 separate days, stool culture negative, bronc cultures no growth so far Qualifiers: Qualified Codes: R50.9 - Fever, unspecified (8) DVT prophylaxis Status: Acute Assessment & Plan: SCDs. Is high risk, however, INR still normal 02/01, will start enoxaparin (1) Bilateral pneumonia Status: Acute Qualifiers: Qualified Codes: J18.9 - Pneumonia, unspecified organism (2) Anemia Status: Acute Qualifiers: Qualified Codes: D64.9 - Anemia, unspecified (3) Tularemia, pulmonary Status: Acute (4) Ehrlichiosis Status: Acute (5) Coagulopathy Status: Resolved (6) Elevated liver enzymes Status: Acute (7) Fever Status: Acute Qualifiers: Qualified Codes: R50.9 - Fever, unspecified (8) DVT prophylaxis Status: Acute Clinical Quality Measures DVT/VTE Risk/Contraindication: Risk Factor Score Per Nursin RFS Level Per Nursing on Admit: 4+=Very High REAGAN MATHEWS DO Feb 02, 2018 11:27
--- NOTE | 2018-02-02 12:34 | Discharge Summary ---
Diagnosis/Chief Complaint Date of Admission Jan 26, 2018 at 12:45 Date of Discharge 02/02/18 Admission Diagnosis Admission Diagnosis Bilateral pneumonia Acute tularemia infection Cough with fever Weight loss Hypoalbuminemia Elevated liver enzymes with ultrasound negative Coagulopathy INR 1.5 Discharge Diagnosis Assessment & Plan (1) Bilateral pneumonia Status: Acute Assessment & Plan: 01/31 Started on rocephin and doxycycline initially and remains on these currently. Legionella and strep antigens negative. Blood cultures with no growth. Bronch done 01/29, culture negative to date. Suspected tularemia pneumonia as noted below. Still requiring 2 lpm supplemental oxygen, encouraged increased activity. 02/01- Tmax 100.0, continue ceftriaxone and doxycycline, continue to monitor bronch cultures. 02/02 - Tmax remains 100.0 at 0900 on 02/01, afebrile >36 hours. Completed 7 days rocephin, 5 days gentamycin today, day 7 doxycycline today; pt has been ambulating around unit without oxygen and reports his breathing is better; cultures with no growth to day; discussed case with Dr. Yocasta haynes to discharge home on PO Doxycycline 100 mg BID for additional 7 days for a total of 14 day course of treatment. Pt needs CT Chest in 8 weeks to assure complete resolution. Qualifiers: Qualified Codes: J18.9 - Pneumonia, unspecified organism (2) Anemia Status: Acute Assessment & Plan: 01/31 unclear etiology, check iron studies, peripheral smear , LDH, stool occult blood. 02/01 labs pending, evaluate when available Qualifiers: Qualified Codes: D64.9 - Anemia, unspecified (3) Tularemia, pulmonary Status: Acute Assessment & Plan: 01/31 tularemia antibody positive, but not markedly high and with one value is not clearly diagnostic of acute infection, given clinical picture however does seem likely, continue gentamicin for at least 7 days. Afebrile last 24 hours. Consider rechecking antibody titer later to confirm tularemia. 02/02 - remains afebrile; discharge on doxycycline x7 additional days for a total of 14 days of treatment; pt on room air and feels his breathing is much improved today. Needs CT Chest in 8 weeks (03/30) to ensure resolution (4) Ehrlichiosis Status: Acute Assessment & Plan: 01/31 Possible, serology positive IgG at relatively low level and negative IgM, difficult to tell if acute or old infection without follow-up serologies which could be obtained later. Is on doxycycline- will need 10 day course or for 3-5 days after defervescence. Last fever 01/29 at just after midnight. 02/02 - continue doxycycline x7 additional days, for a total of 14 days of treatment (5) Coagulopathy Status: Resolved Assessment & Plan: Suspect secondary to liver dysfunction. INR normalized. (6) Elevated liver enzymes Status: Acute Assessment & Plan: 01/31 suspected to be secondary to infections noted above. Hepatitis panel negative. HIV negative. Ultrasound unremarkable and CT abdomen/ pelvis unremarkable except for possible nonspecific enteritis. 02/02 - remain elevated, but stable compared to yesterday. (7) Fever Status: Acute Assessment & Plan: 01/31 afebrile since 01/29 early am, echocardiogram unremarkable, blood cultures no growth on 2 separate days, stool culture negative, [facility] cultures no growth so far; 02/02 remains afebrile, cultures with no growth to date Qualifiers: Qualified Codes: R50.9 - Fever, unspecified Chief Complaint/HPI Chief Complaint/HPI CC: Fever with dyspnea HPI: This is a 62-year-old white male referred from [facility] who presents with fever and dyspnea found to have bilateral pneumonia but elevated liver enzymes and weight loss gives rise to more evaluation. He denies any smoking or alcohol use but unsure if all of his details are reliable. 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 He reports that he is feeling worse but I don't evaluate anything to be that source of worsening. He is convinced it is Salmonella poisoning of which I'm unclear where he obtain that information and he doesn't know either. Discharge Summary-Simple/Stand Consultations Dr. Rust - Pulmonology Discharge Physical Examination Allergies: Coded Allergies: Penicillins (Verified Allergy, Unknown, 05/31/16) Vitals & I&Os Vital Sign - Last 12Hours Date Time Temp Pulse Resp B/P (MAP) Pulse Ox O2 Delivery O2 Flow Rate FiO2 02/02/18 08:18 93 Room Air 02/02/18 08:00 99.2 81 20 102/60 (74) 2.00 02/01/18 08:23 28 Intake and Output 02/02/18 00:00 Intake Total 3082 ml Balance 3082 ml General Appearance: Alert, Oriented X3, Cooperative, No Acute Distress HEENT: Atraumatic, EOMI, Mucous Memb Moist/Inez Respiratory: Clear to Auscultation, Normal Air Movement Cardiovascular: Regular Rate, Normal S1, Normal S2, No Murmurs Abdominal: Normal Bowel Sounds, Soft, No Tenderness Extremities: No Clubbing, No Cyanosis, Normal Pulses Skin: No Rashes, No Significant Lesion Neuro: Normal Gait, Normal Speech, Normal Tone, Sensation Intact, Cranial Nerves 3-12 NL Psych/Mental Status: Mental Status NL, Mood NL Hospital Course See final discharge diagnosis. Discussion & Recommendations CT Chest with contrast in 8 weeks (03/30) to ensure resolution Discharge Condition at discharge stable Instructions to patient/family Please see electronic discharge instructions given to patient. Discharge Medications Reviewed and agree with Discharge Medication list on patient's Discharge Instruction sheet Clinical Quality Measures DVT/VTE Risk/Contraindication: Risk Factor Score Per Nursin RFS Level Per Nursing on Admit: 4+=Very High Copy Copies To 1: [facility]/REAGAN GAMBLE DO Feb 02, 2018 12:34
[2018-02-02] MEDS ORDERED: DOXY100T2 PO (12:36)
--- NOTE | 2018-02-02 12:42 | Discharge Instructions ---
Discharge [facility] Discharge Medications New, Converted or Re-Newed RX: Transmitted to Pharmacy New Medications: Doxycycline Hyclate (Doxycycline Hyclate) 100 Mg Tablet 100 MG PO BID@07,17 for 7 Days, #14 TAB 0 Refills Patient Instructions Patient Instructions -keep follow up appt with Russ Lynn as scheduled -finish all medication -contact office if temp >101 that does not improve with tylenol or ibuprofen -keep appt for CT Chest in 8 weeks to assure resolution Return to The Hospital For: chest pain or pressure, shortness of breath not relieved by rest, nausea or vomiting that makes you unable to keep down ice chips or clear liquids for more than 24 hours, temp >101 that does not resolve with tylenol or ibuprofen and lasts >24 hours, if directed by prevocational/rehabilitation counselor provider or with any other emergent complaints or concerns Activity & Diet Discharge Diet: No Restrictions Activity as Tolerated: Yes Orders-Post D/C & Referrals CT Chest with Contrast in 8 weeks; copy results to [facility] and Dr. Rust Copy Copies To 1: [facility]/REAGAN GAMBLE DO Feb 02, 2018 12:42
[2018-02-02 14:04] VITALS: BP 102/60
== END 2018-02-02 13:55 | disposition home or self-care (01) | DRG 194 ==
LOC: EDUNIT# 10:21 → ER 10:22 → 4TH 12:45
PROVIDERS: ADMIT Internal Medicine; ATTEND Family Medicine
PROC: 0BD58ZX Extraction of Right Middle Lobe Bronchus, Via Natural or Artificial Opening Endoscopic, Diagnostic (ICD-10-PCS; principal; 2018-01-30 07:00)
DX: J18.9 Pneumonia, unspecified organism (principal); A21 Tularemia; A77.41 Ehrlichiosis chaffeensis [E. chaffeensis]; E86.0 Dehydration; R19.7 Diarrhea, unspecified; R74.8 Abnormal levels of other serum enzymes; R63.4 Abnormal weight loss; E88.09 Other disorders of plasma-protein metabolism, not elsewhere classified; R53.1 Weakness; R79.1 Abnormal coagulation profile; F32.9 Major depressive disorder, single episode, unspecified; R42 Dizziness and giddiness; R41.0 Disorientation, unspecified; E87.6 Hypokalemia; R80.9 Proteinuria, unspecified; D64.9 Anemia, unspecified; Z56.0 Unemployment, unspecified
CPT/HCPCS: 36415; 70553; 71045; 71046; 71260; 74177; 76700; 80053; 80074; 80170; 80306; 81000; 82140; 82728; 83540; 83605; 83615; 85007; 85025; 85027; 85045; 85610; 85730; 86618; 86666; 86668; 86703; 86757; 87040; 87045; 87046; 87070; 87101; 87116; 87205; 87449; 87899; 88112; 88305; 93306; 94640; 94664; 94760; 96361; 96374

== ENCOUNTER 2019-03-19 00:45 | Emergency (ER) | payer OTHER ==
[~2019-03-19] VITALS: Ht 175.3 cm; Wt 72.6 kg
[~2019-03-19 00:45] MED LIST changes: +DOXY100T2 PO; +HYDR-4226 PO; -HYDR-757 PO
[2019-03-19] MEDS ORDERED: SULF1TAB35 PO (01:20)
--- NOTE | 2019-03-19 01:20 | ED Integumentary General ---
General Chief Complaint: Skin/Wound Problems Stated Complaint: SPIDER BITE-RT HIP Source: patient History of Present Illness Date Seen by Provider: Mar 19, 2019 Time Seen by Provider: 01:06 Initial Comments C/O "SPIDER BITE" TO RIGHT HIP NOTICED A SORE, RED SPOT ON RIGHT HIP LAST NIGHT AREA HAS GOTTEN BIGGER TONIGHT DID NOT SEE OR FEEL ANYTHING BITE HIM NO DRAINAGE OR STREAKS NO FEVER NO HISTORY OF SIMILAR PCP: [facility] Allergies and Home Medications Allergies Coded Allergies: Penicillins (Verified Allergy, Unknown, 05/31/16) Home Medications Doxycycline Hyclate 100 Mg Tablet, 100 MG PO BID@,17 Prescribed by: REAGAN MATHEWS on 02/02/18 1236 Sulfamethoxazole/Trimethoprim 1 Each Tablet, 1 EACH PO BID Prescribed by: TERRELL SNIDER on 03/19/19 0120 Patient Home Medication List Home Medication List Reviewed: Yes Review of Systems Review of Systems Constitutional: no symptoms reported Respiratory: no symptoms reported Cardiovascular: no symptoms reported Gastrointestinal: no symptoms reported Musculoskeletal: see HPI Skin: see HPI Psychiatric/Neurological: No Symptoms Reported Endocrine: No Symptoms Reported Hematologic/Lymphatic: No Symptoms Reported Past Woftgvb-Ozvyki-Vxzxou Hx Patient Social History Alcohol Use: Denies Use Recreational Drug Use: No Smoking Status: Current Everyday Smoker 2nd Hand Smoke Exposure: No Recent Foreign Travel: No Contact w/Someone Who Travel: No Recent Hopitalizations: No Immunizations Up To Date Tetanus Booster (TDap): Unknown Seasonal Allergies Seasonal Allergies: No Past Medical History Surgeries: Yes (HERNIA REPAIR) Abdominal, Tonsillectomy Respiratory: No Cardiac: No Neurological: No Reproductive Disorders: No Genitourinary: No Gastrointestinal: Yes (HERNIA REPAIR) Abdominal Hernia Musculoskeletal: No Endocrine: No HEENT: No Cancer: No Psychosocial: No Integumentary: No Blood Disorders: No Family Medical History No Pertinent Family Hx Physical Exam Vital Signs Vital Signs - First Documented 03/19/19 01:05 Temp 99.2 Pulse 64 Resp 18 B/P (MAP) 111/72 (85) Pulse Ox 98 Capillary Refill : General Appearance: WD/WN, no apparent distress Cardiovascular: regular rate, rhythm Respiratory: normal breath sounds Gastrointestinal: non tender Back: normal inspection Extremities: normal capillary refill, other (LATERAL RIGHT HIP WITH 4X5 CM AREA OF MILD ERYTHEMA WITH MILD SURROUNDING SWELLING AND SLIGHT INDURATION EXTENDING TO 6X8 CM. NO OPEN WOUNDS, NO AREAS OF FLUCTUANCE. NO DRAINAGE. NO STREAKS ) Neurologic/Psychiatric: no motor/sensory deficits, alert, normal mood/affect, oriented x 3 Skin: normal color, warm/dry, other ( ABOVE) Progress/Results/Core Measures Results/Orders My Orders Orders - TERRELL SNIDER DO Clindamycin Injection (Cleocin Injection (03/19/19 01:30) Sulfamethoxazole/Trimet Ds Tab (Bactrim (03/19/19 01:30) Clindamycin Injection (Cleocin Injection (03/19/19 01:29) Medications Given in ED Current Medications Medications Dose Ordered Sig/Sneha Route Start Time Stop Time Status Last Admin Dose Admin Clindamycin Phosphate 600 mg ONCE ONCE IM 03/19/19 01:30 03/19/19 01:31 DC 03/19/19 01:39 600 MG Trimethoprim/ Sulfamethoxazole 2 ea ONCE ONCE PO 03/19/19 01:30 03/19/19 01:31 DC 03/19/19 01:43 2 EA Vital Signs/I&O 03/19/19 01:05 Temp 99.2 Pulse 64 Resp 18 B/P (MAP) 111/72 (85) Pulse Ox 98 Progress Progress Note : Progress Note DECLINES TETANUS SHOT DECLINES STEROIDS OR ANYTHING FOR PAIN JUST WANTS ANTIBIOTICS ADVISED PT THAT AT THIS TIME, THERE IS NO DEFINITE ABSCESS TO I&D AT THIS TIME, BUT THAT IF MAY NEED TO BE DRAINED IN THE FUTURE IF SYMPTOMS WORSEN OR DEFINITE ABSCESS FORMS Departure Impression Primary Impression: Cellulitis of right hip Disposition: HOME, SELF-CARE Condition: Stable Departure-Patient Inst. Referrals: [facility] (PCP/Family) Primary Care Physician Patient Instructions: Cellulitis (Skin Infection), Adult (DC), MRSA (DC) Add. Discharge Instructions: ALTERNATE ICE AND HEAT TO AREA AT 20 MINUTE INTERVALS TYLENOL AND MOTRIN NEEDED FOR PAIN FOLLOW UP WITH [facility] IN 2-3 DAYS FOR FURTHER CARE All discharge instructions reviewed with patient and/or family. Voiced understanding. Scripts Sulfamethoxazole/Trimethoprim (Bactrim Ds Tablet) 1 Each Tablet 1 EACH PO BID, #20 TAB Prov: TERRELL SNIDER DO 03/19/19 TERRELL SNIDER DO Mar 19, 2019 01:20
[2019-03-19] MEDS ORDERED: CLINDAMYCIN 300 MG/2ML (CLEOCIN) VIAL ONE (01:29)
[2019-03-19] MEDS ORDERED: CLINDAMYCIN 600 MG/4ML (CLEOCIN) VIAL IM ONE (01:30)
[2019-03-19] MEDS ORDERED: TRIM/SULFAMETH 160/800 (SEPTRA DS) TAB PO ONE (01:30)
[2019-03-19 02:20] VITALS: BP 111/72
== END 2019-03-19 02:20 | disposition home or self-care (01) ==
LOC: EDUNIT# 00:45 → ER 00:48
DX: L03.115 Cellulitis of right lower limb (principal); F17.200 Nicotine dependence, unspecified, uncomplicated; Z88.0 Allergy status to penicillin; Z98.890 Other specified postprocedural states; Z90.89 Acquired absence of other organs
CPT/HCPCS: 99284